=== PATIENT | male | born 1945 | race Caucasian/White ===

== ENCOUNTER 2016-08-08 12:14 | Emergency (ER) | payer OTHER ==
[2016-08-08] MEDS ORDERED: ONDANSETRON 4MG/2ML VIAL (J2405) As Ordered ONE (13:01)
[2016-08-08 13:38] LABS: BASO % 0.3 % (0.0-1.0); EOS % 0.4 % (0.0-3.0); LARGE UNSTAINED CELL # 0.1 K/mm3 (0.0-0.4); LARGE UNSTAINED CELL % 0.9 % (0.0-4.0); LYMPH # 0.5 K/mm3 (1.5-4.5); LYMPH % 5.1 % (24.0-44.0); MEAN CORPUSCULAR HEMOGLOBIN 30.8 pg (27.0-33.0); MEAN CORPUSCULAR HGB CONC 34.5 g/dl (32.0-36.5); MEAN CORPUSCULAR VOLUME 89.1 fl (80.0-96.0); MONO # 0.5 K/mm3 (0.0-0.8); MONO % 4.9 % (0.0-5.0); NEUTROPHILS # 8.7 K/mm3 (1.8-7.7); NEUTROPHILS % 88.3 % (36.0-66.0); PLATELET COUNT, AUTOMATED 127 k/mm3 (150-450); WHITE BLOOD COUNT 9.8 K/mm3 (4.0-10.0)
[2016-08-08 13:45] LABS: ALBUMIN/GLOBULIN RATIO 1.11 (1.00-1.93); ALKALINE PHOSPHATASE 125 U/L (45-117); ALT/SGPT 22 U/L (12-78); ANION GAP 9 MEQ/L (8-16); AST/SGOT 13 U/L (15-37); BILIRUBIN,DIRECT 0.2 MG/DL (0.0-0.2); BLOOD UREA NITROGEN 22 MG/DL (7-18); CALCIUM LEVEL 8.6 MG/DL (8.8-10.2); CARBON DIOXIDE LEVEL 33 MEQ/L (21-32); CHLORIDE LEVEL 96 MEQ/L (98-107); CREATININE FOR GFR 0.87 MG/DL (0.70-1.30); GLOMERULAR FILTRATION RATE > 60.0 (>42); GLUCOSE, FASTING 125 MG/DL (83-110); POTASSIUM SERUM 3.5 MEQ/L (3.5-5.1); SODIUM LEVEL 138 MEQ/L (136-145); TOTAL PROTEIN 7.6 GM/DL (6.4-8.2)
[2016-08-08] MEDS ORDERED: ACETAMINOPHEN 325 MG TAB As Ordered ONE (14:30)
[2016-08-08] MEDS ORDERED: UNASYN 3 GM VIAL As Ordered ONE (14:52)
--- NOTE | 2016-08-08 16:06 | EDDOCDS ---
Nurse's Notes [facility] Name: Link Ramirez Age: 71 yrs Sex: Male : 1945 Arrival Date: 08/08/2016 Time: 12:14 Bed I Private MD: Marvel Loredo P. Diagnosis: Nausea and vomiting-viral syndrome;Dental caries Presentation: 08/08 12:26 Presenting complaint: Patient states: my stomach is all upset started the other day and [facility] I have a bad tooth in there too, and I just Oh God, all I wanna do is lay down I can't drink anything 'cause if I do it comes back up. Adult Sepsis Screening: The patient does not have new or worsening altered mentation. Patient's respiratory rate is less than 22. Systolic blood pressure is greater than 100. Patient has a qSOFA score of 0- Negative Sepsis Screen. Suicide/Homicide risk assessment- The patient reports that he/she. Status: Patient is not a it service delivery manager or dependent. Transition of care: patient was not received from another setting of care. 12:26 Acuity: GLORIA Level 3 [facility] 12:26 Method Of Arrival: Walkin/Carried/Asstd [facility] Triage Assessment: 12:31 General: Appears ill, Behavior is anxious. Pain: Location: head Pain currently is 6 out [facility] of 10 on a pain scale. Neurological: Level of Consciousness is awake, alert, Oriented to person, place, time. EENT: Reports pain in mouth. Respiratory: Airway is patent Respiratory effort is even, unlabored. Derm: Skin is pink, warm & dry. Historical: - Allergies: no known allergies; - Home Meds: 1. Paxil 40 mg Oral tab 1 tab once daily (Last dose: 08/06/2016) 2. Pain, unknown nightly 3. Flonase 50 mcg/actuation Nasal spsn 1 spray once daily - PMHx: Depression; - PSHx: Appendectomy; Tonsillectomy; - Social history: Smoking status: Patient states was never smoker of tobacco. No barriers to communication noted. - Family history: Not pertinent. - : The pt / caregiver states he / she is not on anticoagulants. Home medication list is obtained from the patient, Unable to Verify Home Med List with the patient / caregiver. - Exposure Risk Screening:: None identified. Screenin:11 Screening information is obtained from the patient. Primary language is Slovak. Fall jam1 risk: No risks identified. Assistance ADL's: requires no assistance with activities of daily living. Nutritional screening: No deficits noted. Exposure Risk Screening: None identified. Advance Directives: Currently, there is a health care proxy, daughter of pt emi field. There is no active DNR order. There is no living will. There is no Power of Hybrid Corn Breeder. Advance directive information does not know if advance directives have been placed in a prior [facility] medical record. Further advance directive information is declined. home support is adequate. 16:04 Abuse/DV Screen: The patient / caregiver reports he/she is: not in a situation that dsf causes fear, pain or injury. Assessment: 13:14 Adult Sepsis Screening: The patient does not have new or worsening altered mentation. dsf Patient's respiratory rate is less than 22. Systolic blood pressure is greater than 100. Patient has a qSOFA score of 0- Negative Sepsis Screen. General: Appears in no apparent distress, Behavior is appropriate for age, cooperative. Pain: Location: right jaw Pain currently is 3 out of 10 on a pain scale. Quality of pain is described as throbbing. Neurological: Level of Consciousness is awake, alert. Cardiovascular: No deficits noted. Respiratory: No deficits noted. GI: other dry heaves Reports nausea. Derm: Skin is pink, warm & dry. 14:05 General: Appears in no apparent distress, Behavior is appropriate for age. Pain: dsf Location: right jaw Pain currently is 3 out of 10 on a pain scale. Neurological: Level of Consciousness is awake, alert. Cardiovascular: Capillary refill < 3 seconds. Respiratory: Airway is patent Respiratory effort is even, unlabored, Respiratory pattern is regular, symmetrical. GI: Reports nausea has improved. Derm: Skin is pink, warm & dry. 15:03 General: Appears in no apparent distress, comfortable, Behavior is appropriate for age, dsf cooperative. Pain: Location: right jaw Pain currently is 3 out of 10 on a pain scale. Neurological: Level of Consciousness is awake, alert. Cardiovascular: No deficits noted. Respiratory: No deficits noted. Derm: Skin is pink, warm & dry. 15:26 General: pt drank paramjit miguel a without difficulty. pt denies nausea or vomiting . dsf 16:04 Adult Sepsis Screening: The patient does not have new or worsening altered mentation. dsf Patient's respiratory rate is less than 22. Systolic blood pressure is greater than 100. Patient has a qSOFA score of 0- Negative Sepsis Screen. General: Appears in no apparent distress, comfortable, Behavior is appropriate for age, cooperative. Pain: Location: right jaw Pain currently is 1 out of 10 on a pain scale. Neurological: Level of Consciousness is awake, alert. Cardiovascular: Capillary refill < 3 seconds. Respiratory: Airway is patent Respiratory effort is even, unlabored, Respiratory pattern is regular, symmetrical. GI: Denies nausea. Derm: Skin is pink, warm & dry. Vital Signs: 12:17 BP 148 / 78; Pulse 114; Resp 18; Temp 101.3(O); Pulse Ox 92% on R/A; Weight 92.53 kg gr2 (R); Height 5 ft. 5 in. (165.10 cm) (R); Pain 8/10; 14:09 BP 113 / 83; Pulse 113; Resp 20; Temp 100.2(O); Pulse Ox 92% ; Pain 5/10; jam1 15:33 BP 110 / 54; Pulse 112; Resp 20; Temp 100.0; Pulse Ox 96% ; Pain 2/10; jam1 12:17 Body Mass Index 33.95 (92.53 kg, 165.10 cm) gr2 Vitals: 12:17 Log In Time: August 08, 2016 at 12:17. gr2 13:16 Strep Screen is obtained and tested: Negative, a GATSNEG culture is ordered in [facility] and sent. ED Course: 12:16 Patient visited by Willie Pineda. gr2 12:16 Marvel Loredo is Private Physician. gr2 12:16 Patient moved to Waiting gr2 12:18 Patient visited by Willie Pineda. gr2 12:18 Patient moved to Pre RCE gr2 12:27 Triage Initiated cjh 12:33 Patient moved to Triage 1 kr3 12:43 Wilbur Chacon PA-C is PHCP. ar2 12:43 Samuel Vu MD is Attending Physician. ar2 12:43 Patient visited by Wilbur Chacon PA-C. ar2 13:03 Patient moved to I7 / kr3 13:04 [facility] Payment Agreement was scanned into [employer] and attached to record. lg 13:15 Inserted saline lock: 18 gauge in left antecubital area The patient tolerated the dsf procedure well. 13:16 Lipase Sent. dsf 13:16 -Influenza A&B Rapid Antigen - Nose Sent. dsf 13:16 Liver Profile Sent. dsf 13:16 MED Profile Sent. dsf 13:16 CBC with Diff Sent. dsf 13:17 Patient visited by Lor Johnson RN. dsf 13:23 GATS (NEGATIVE STREP SCREEN) Sent. dsf 14:05 Patient visited by Lor Johnson RN. dsf 14:34 Patient moved to Radiology dsf 14:35 Patient moved to dsf 15:03 Patient visited by Lor Johnson RN. dsf 15:55 Marvel Loredo is Referral Physician. ar2 16:04 The patient / caregiver is instructed regarding the plan of care and ED course. dsf 16:04 Discontinued lock intact, bleeding controlled, pressure dressing applied, No dsf redness/swelling at site. No procedures done that require assistance. Administered Medications: 13:16 Drug: NS 0.9% 1000 ml [sodium chloride 0.9 % injection solution] Route: IV; Rate: dsf bolus; Site: left antecubital; 14:06 Follow up: IV Status: Completed infusion; IV Intake: 1000ml dsf 13:16 Drug: Ondansetron 4 mg [ondansetron HCl 2 mg/mL intravenous solution (2 mL)] Route: dsf IVP; Site: left antecubital; 14:32 Drug: Acetaminophen 650 mg [acetaminophen 325 mg tablet (2 tabs)] Route: PO; dsf 14:42 Not Given (Duplicate Order): Ampicillin-Sulbactam Sodium 2 grams IVPB once over 30 ar2 mins; dilute in 50mL of NS or D5W 14:57 Drug: Ampicillin-Sulbactam Sodium 3 grams [ampicillin-sulbactam 1.5 gram solution for dsf injection] Route: IVPB; Infused Over: 30 mins; Site: left antecubital; 15:26 Follow up: IV Status: Completed infusion; IV Intake: 100ml dsf Intake: 14:06 IV: 1000.00ml; Total: 1000.00ml. dsf 15:26 IV: 100.00ml; Total: 1100.00ml. dsf 15:27 PO: 120.00ml (Soft Drink); Total: 1220.00ml. dsf Order Results: Lab Order: CBC with Diff; SPEC'M 08/08/16 13:05 Test: WHITE BLOOD COUNT; Value: 9.8; Range: 4.0-10.0; Units: K/mm3; Status: F Test: RED BLOOD COUNT; Value: 5.21; Range: 4.30-6.10; Units: M/mm3; Status: F Test: HEMOGLOBIN; Value: 16.0; Range: 14.0-18.0; Units: g/dl; Status: F Test: HEMATOCRIT; Value: 46.4; Range: 42.0-52.0; Units: %; Status: F Test: MEAN CORPUSCULAR VOLUME; Value: 89.1; Range: 80.0-96.0; Units: fl; Status: F Test: MEAN CORPUSCULAR HEMOGLOBIN; Value: 30.8; Range: 27.0-33.0; Units: pg; Status: F Test: MEAN CORPUSCULAR HGB CONC; Value: 34.5; Range: 32.0-36.5; Units: g/dl; Status: F Test: RED CELL DISTRIBUTION WIDTH; Value: 13.0; Range: 11.5-14.5; Units: %; Status: F Test: PLATELET COUNT, AUTOMATED; Value: 127; Range: 150-450; Abnormal: Below low normal; Units: k/mm3; Status: F Test: NEUTROPHILS %; Value: 88.3; Range: 36.0-66.0; Abnormal: Above high normal; Units: %; Status: F Test: LYMPH %; Value: 5.1; Range: 24.0-44.0; Abnormal: Below low normal; Units: %; Status: F Test: MONO %; Value: 4.9; Range: 0.0-5.0; Units: %; Status: F Test: EOS %; Value: 0.4; Range: 0.0-3.0; Units: %; Status: F Test: BASO %; Value: 0.3; Range: 0.0-1.0; Units: %; Status: F Test: LARGE UNSTAINED CELL %; Value: 0.9; Range: 0.0-4.0; Units: %; Status: F Test: NEUTROPHILS #; Value: 8.7; Range: 1.8-7.7; Abnormal: Above high normal; Units: K/mm3; Status: F Test: LYMPH #; Value: 0.5; Range: 1.5-4.5; Abnormal: Below low normal; Units: K/mm3; Status: F Test: MONO #; Value: 0.5; Range: 0.0-0.8; Units: K/mm3; Status: F Test: EOS #; Value: 0.0; Range: 0.0-0.50; Units: K/mm3; Status: F Test: BASO #; Value: 0.0; Range: 0.0-0.2; Units: K/mm3; Status: F Test: LARGE UNSTAINED CELL #; Value: 0.1; Range: 0.0-0.4; Units: K/mm3; Status: F Lab Order: MED Profile; [facility] 08/08/16 13:05 Test: GLUCOSE, FASTING; Value: 125; Range: 83-110; Abnormal: Above high normal; Units: MG/DL; Status: F Test: BLOOD UREA NITROGEN; Value: 22; Range: 7-18; Abnormal: Above high normal; Units: MG/DL; Status: F Test: CREATININE FOR GFR; Value: 0.87; Range: 0.70-1.30; Units: MG/DL; Status: F Test: GLOMERULAR FILTRATION RATE; Value: > 60.0; Range: >42; Status: F Test: SODIUM LEVEL; Value: 138; Range: 136-145; Units: MEQ/L; Status: F Test: POTASSIUM SERUM; Value: 3.5; Range: 3.5-5.1; Units: MEQ/L; Status: F Test: CHLORIDE LEVEL; Value: 96; Range: 98-107; Abnormal: Below low normal; Units: MEQ/L; Status: F Test: CARBON DIOXIDE LEVEL; Value: 33; Range: 21-32; Abnormal: Above high normal; Units: MEQ/L; Status: F Test: ANION GAP; Value: 9; Range: 8-16; Units: MEQ/L; Status: F Test: CALCIUM LEVEL; Value: 8.6; Range: 8.8-10.2; Abnormal: Below low normal; Units: MG/DL; Status: F Test Note: ; Units are mL/min/1.73 m2 Chronic Kidney Disease Staging per NKF: Stage I & II GFR >=60 Normal to Mildly Decreased Stage III GFR 30-59 Moderately Decreased Stage IV GFR 15-29 Severely Decreased Stage V GFR <15 Very Little GFR Left ESRD GFR <15 on MACHINE TOOL TECHNOLOGY INSTRUCTOR Lab Order: Liver Profile; SPEC'M 08/08/16 13:05 Test: AST/SGOT; Value: 13; Range: 15-37; Abnormal: Below low normal; Units: U/L; Status: F Test: ALT/SGPT; Value: 22; Range: 12-78; Units: U/L; Status: F Test: ALKALINE PHOSPHATASE; Value: 125; Range: 45-117; Abnormal: Above high normal; Units: U/L; Status: F Test: BILIRUBIN,TOTAL; Value: 1.0; Range: 0.2-1.0; Units: MG/DL; Status: F Test: BILIRUBIN,DIRECT; Value: 0.2; Range: 0.0-0.2; Units: MG/DL; Status: F Test: TOTAL PROTEIN; Value: 7.6; Range: 6.4-8.2; Units: GM/DL; Status: F Test: ALBUMIN; Value: 4.0; Range: 3.2-5.2; Units: GM/DL; Status: F Test: ALBUMIN/GLOBULIN RATIO; Value: 1.11; Range: 1.00-1.93; Status: F Lab Order: -Influenza A&B Rapid Antigen - Nose; SPEC'M 08/08/16 13:05 Test: INFLUENZA A RAPID SCR by ICA; Value: INFLUENZA A RESULTS NEGATIVE; Status: F Test: INFLUENZA A RAPID SCR by ICA; Value: Comments:; Status: F Test: INFLUENZA B RAPID SCR by ICA; Value: INFLUENZA B RESULTS NEGATIVE; Status: F Test Note: ; The Influenza test is a direct rapid immunoassay for the qualitative detection of Influenza viral antigen. Cell culture (Viral Culture) testing should be considered to confirm NEGATIVE results and to assist in detecting other viruses that can provide similar clinical symptoms. Please contact the lab within 24 hours ([phone]) if confirmatory testing is desired. Lab Order: Lipase; SPEC'M 08/08/16 13:05 Test: LIPASE; Value: 64; Range: 73-393; Abnormal: Below low normal; Units: U/L; Status: F Outcome: 15:56 Discharge ordered by Provider. ar2 16:05 Discharge Assessment: Patient awake, alert and oriented x 3. No cognitive and/or dsf functional deficits noted. Patient verbalized understanding of disposition instructions. patient administered narcotics - no. The following High Risk Discharge criteria are identified: None. Discharged to home ambulatory. Condition: stable. Discharge instructions given to patient, Instructed on discharge instructions, follow up and referral plans. medication usage, Demonstrated understanding of instructions, medications, Pt was receptive of discharge instructions/ teaching. Prescriptions given X 2. No special radiology studies were completed. Property sent home with patient. 16:05 Patient left the ED. dsf Signatures: Rafaela Rao, MACHINIST 2ND SHIFT MACHINIST 2ND SHIFT jam1 Bree Mayorga, Reg Reg lg Yamilex Rodríguez,RN RN kr3 Wilbur Chacon, PAFang PAFang ar2 Lor JohnsonRN RN dsf Rafaela Buenrostro,RN RN [facility] Willie Pineda gr2 Corrections: (The following items were deleted from the chart) 16:05 16:04 Abuse/DV Screen: The patient / caregiver reports he/she is: dsf dsf MTDD
--- NOTE | 2016-08-08 16:06 | EDDOCDS ---
Physician Documentation [facility] Name: Link Ramirez Age: 71 yrs Sex: Male : 1945 Arrival Date: 08/08/2016 Time: 12:14 Bed I7 Private MD: Marvel Loredo P. Disposition: 08/08/16 15:56 Discharged to Home/Self Care. Impression: Nausea and vomiting - viral syndrome, Dental caries. - Condition is Stable. - Discharge Instructions: Dehydration, Adult, Dental Abscess, Dental Pain, Nausea and Vomiting, Viral Infections. - Prescriptions for Augmentin 875- 125 mg Oral Tablet - take 1 tablet by ORAL route every 12 hours for 10 days; 20 tablet. ZOFRAN ODT 4 mg Oral - dissolve 1 tablet by ORAL route every 8 hours As needed do not chew, do not swallow whole; 10 tablet. - Medication Reconciliation, Local Pharmacy Hours form. - Follow up: Marvel Loredo; When: As previously arranged; Reason: Recheck today's complaints, Continuance of care. Follow up: Emergency Department; When: As needed; Reason: Fever > 102F, Trouble breathing, Worsening of conditions. - Problem is new. - Symptoms have improved. Historical: - Allergies: no known allergies; - Home Meds: 1. Paxil 40 mg Oral tab 1 tab once daily (Last dose: 08/06/2016) 2. Pain, unknown nightly 3. Flonase 50 mcg/actuation Nasal spsn 1 spray once daily - PMHx: Depression; - PSHx: Appendectomy; Tonsillectomy; - Social history: Smoking status: Patient states was never smoker of tobacco. No barriers to communication noted. - Family history: Not pertinent. - : The pt / caregiver states he / she is not on anticoagulants. Home medication list is obtained from the patient, Unable to Verify Home Med List with the patient / caregiver. - Exposure Risk Screening:: None identified. Vital Signs: 08/08 12:17 BP 148 / 78; Pulse 114; Resp 18; Temp 101.3(O); Pulse Ox 92% on R/A; Weight 92.53 kg / gr2 203.99 lbs (R); Height 5 ft. 5 in. (165.10 cm) (R); Pain 8/10; 14:09 BP 113 / 83; Pulse 113; Resp 20; Temp 100.2(O); Pulse Ox 92% ; Pain 5/10; jam1 15:33 BP 110 / 54; Pulse 112; Resp 20; Temp 100.0; Pulse Ox 96% ; Pain 2/10; jam1 12:17 Body Mass Index 33.95 (92.53 kg, 165.10 cm) gr2 MDM: 12:52 Financial registration complete. lg 12:57 IV Saline Lock ordered. ar2 12:57 NS 0.9% 1000 ml IV at bolus once ordered. ar2 12:57 Ondansetron 4 mg IVP once ordered. ar2 12:57 Strep Screen, Nursing ordered. ar2 12:58 CBC with Diff Ordered. EDMS 12:58 MED Profile Ordered. EDMS 12:58 Liver Profile Ordered. EDMS 12:58 -Influenza A&B Rapid Antigen - Nose Ordered. EDMS 12:58 Lipase Ordered. EDMS 13:04 [facility] Payment Agreement was scanned into [employer] and attached to record. lg 13:17 GATS (NEGATIVE STREP SCREEN) Ordered. EDMS 14:23 CBC with Diff Reviewed. ar2 14:23 MED Profile Reviewed. ar2 14:23 Liver Profile Reviewed. ar2 14:23 Lipase Reviewed. ar2 14:23 -Influenza A&B Rapid Antigen - Nose Reviewed. ar2 14:24 Acetaminophen Tablet 650 mg PO once ordered. ar2 14:24 Fluid Challenge ordered. ar2 14:24 Ampicillin-Sulbactam Sodium 2 grams IVPB once over 30 mins; dilute in 50mL of NS or D5W ar2 ordered. 14:26 Chest, 2 View (pa\E\lat) Ordered. EDMS 14:42 Ampicillin-Sulbactam Sodium 2 grams IVPB once over 30 mins; dilute in 50mL of NS or D5W ar2 ordered. 14:42 Ampicillin-Sulbactam Sodium 3 grams IVPB once over 30 mins; dilute in 100mL of NS or ar2 D5W ordered. Administered Medications: 13:16 Drug: NS 0.9% 1000 ml [sodium chloride 0.9 % injection solution] Route: IV; Rate: dsf bolus; Site: left antecubital; 14:06 Follow up: IV Status: Completed infusion; IV Intake: 1000ml dsf 13:16 Drug: Ondansetron 4 mg [ondansetron HCl 2 mg/mL intravenous solution (2 mL)] Route: dsf IVP; Site: left antecubital; 14:32 Drug: Acetaminophen 650 mg [acetaminophen 325 mg tablet (2 tabs)] Route: PO; dsf 14:42 Not Given (Duplicate Order): Ampicillin-Sulbactam Sodium 2 grams IVPB once over 30 ar2 mins; dilute in 50mL of NS or D5W 14:57 Drug: Ampicillin-Sulbactam Sodium 3 grams [ampicillin-sulbactam 1.5 gram solution for dsf injection] Route: IVPB; Infused Over: 30 mins; Site: left antecubital; 15:26 Follow up: IV Status: Completed infusion; IV Intake: 100ml dsf Signatures: Dispatcher [employer] EDBree Stallings, Maicol Reg lg Wilbur Chacon PA-C PA-C ar2 Lor Johnson RN RN dsf Rafaela Buenrostro RN RN [facility] The chart was reviewed and I authenticate all verbal orders and agree with the evaluation and treatment provided.Attachments: 13:04 [facility] Payment Agreement lg MTDD
--- NOTE | 2016-08-09 19:57 | REP ---
PA and lateral chest radiograph 08/08/2016 Indication: Fever Comparison: Portable chest 07/07/2014, PA and lateral chest 08/22/2010 Cardiac silhouette is of normal size. The lungs are clear bilaterally. There are moderate to advanced degenerative changes in thoracic spine. Impression: No acute cardiopulmonary process or interval change. Signed by Marianna Torres MD 08/09/2016 07:48 P
--- NOTE | 2016-08-10 17:06 | EDDOCDS ---
Nurse's Notes [facility] Name: Link Ramirez Age: 71 yrs Sex: Male : 1945 Arrival Date: 08/08/2016 Time: 12:14 Bed I Private MD: Marvel Loredo P. Diagnosis: Nausea and vomiting-viral syndrome;Dental caries Presentation: 08/08 12:26 Presenting complaint: Patient states: my stomach is all upset started the other day and [facility] I have a bad tooth in there too, and I just Oh God, all I wanna do is lay down I can't drink anything 'cause if I do it comes back up. Adult Sepsis Screening: The patient does not have new or worsening altered mentation. Patient's respiratory rate is less than 22. Systolic blood pressure is greater than 100. Patient has a qSOFA score of 0- Negative Sepsis Screen. Suicide/Homicide risk assessment- The patient reports that he/she. Status: Patient is not a field service coordinator or dependent. Transition of care: patient was not received from another setting of care. 12:26 Acuity: GLORIA Level 3 [facility] 12:26 Method Of Arrival: Walkin/Carried/Asstd [facility] Triage Assessment: 12:31 General: Appears ill, Behavior is anxious. Pain: Location: head Pain currently is 6 out [facility] of 10 on a pain scale. Neurological: Level of Consciousness is awake, alert, Oriented to person, place, time. EENT: Reports pain in mouth. Respiratory: Airway is patent Respiratory effort is even, unlabored. Derm: Skin is pink, warm & dry. Historical: - Allergies: no known allergies; - Home Meds: 1. Paxil 40 mg Oral tab 1 tab once daily (Last dose: 08/06/2016) 2. Pain, unknown nightly 3. Flonase 50 mcg/actuation Nasal spsn 1 spray once daily - PMHx: Depression; - PSHx: Appendectomy; Tonsillectomy; - Social history: Smoking status: Patient states was never smoker of tobacco. No barriers to communication noted. - Family history: Not pertinent. - : The pt / caregiver states he / she is not on anticoagulants. Home medication list is obtained from the patient, Unable to Verify Home Med List with the patient / caregiver. - Exposure Risk Screening:: None identified. Screenin:11 Screening information is obtained from the patient. Primary language is Irish. Fall jam1 risk: No risks identified. Assistance ADL's: requires no assistance with activities of daily living. Nutritional screening: No deficits noted. Exposure Risk Screening: None identified. Advance Directives: Currently, there is a health care proxy, daughter of pt emi field. There is no active DNR order. There is no living will. There is no Power of Cad Developer. Advance directive information does not know if advance directives have been placed in a prior [facility] medical record. Further advance directive information is declined. home support is adequate. 16:04 Abuse/DV Screen: The patient / caregiver reports he/she is: not in a situation that dsf causes fear, pain or injury. Assessment: 13:14 Adult Sepsis Screening: The patient does not have new or worsening altered mentation. dsf Patient's respiratory rate is less than 22. Systolic blood pressure is greater than 100. Patient has a qSOFA score of 0- Negative Sepsis Screen. General: Appears in no apparent distress, Behavior is appropriate for age, cooperative. Pain: Location: right jaw Pain currently is 3 out of 10 on a pain scale. Quality of pain is described as throbbing. Neurological: Level of Consciousness is awake, alert. Cardiovascular: No deficits noted. Respiratory: No deficits noted. GI: other dry heaves Reports nausea. Derm: Skin is pink, warm & dry. 14:05 General: Appears in no apparent distress, Behavior is appropriate for age. Pain: dsf Location: right jaw Pain currently is 3 out of 10 on a pain scale. Neurological: Level of Consciousness is awake, alert. Cardiovascular: Capillary refill < 3 seconds. Respiratory: Airway is patent Respiratory effort is even, unlabored, Respiratory pattern is regular, symmetrical. GI: Reports nausea has improved. Derm: Skin is pink, warm & dry. 15:03 General: Appears in no apparent distress, comfortable, Behavior is appropriate for age, dsf cooperative. Pain: Location: right jaw Pain currently is 3 out of 10 on a pain scale. Neurological: Level of Consciousness is awake, alert. Cardiovascular: No deficits noted. Respiratory: No deficits noted. Derm: Skin is pink, warm & dry. 15:26 General: pt drank paramjit miguel a without difficulty. pt denies nausea or vomiting . dsf 16:04 Adult Sepsis Screening: The patient does not have new or worsening altered mentation. dsf Patient's respiratory rate is less than 22. Systolic blood pressure is greater than 100. Patient has a qSOFA score of 0- Negative Sepsis Screen. General: Appears in no apparent distress, comfortable, Behavior is appropriate for age, cooperative. Pain: Location: right jaw Pain currently is 1 out of 10 on a pain scale. Neurological: Level of Consciousness is awake, alert. Cardiovascular: Capillary refill < 3 seconds. Respiratory: Airway is patent Respiratory effort is even, unlabored, Respiratory pattern is regular, symmetrical. GI: Denies nausea. Derm: Skin is pink, warm & dry. Vital Signs: 12:17 BP 148 / 78; Pulse 114; Resp 18; Temp 101.3(O); Pulse Ox 92% on R/A; Weight 92.53 kg gr2 (R); Height 5 ft. 5 in. (165.10 cm) (R); Pain 8/10; 14:09 BP 113 / 83; Pulse 113; Resp 20; Temp 100.2(O); Pulse Ox 92% ; Pain 5/10; jam1 15:33 BP 110 / 54; Pulse 112; Resp 20; Temp 100.0; Pulse Ox 96% ; Pain 2/10; jam1 12:17 Body Mass Index 33.95 (92.53 kg, 165.10 cm) gr2 Vitals: 12:17 Log In Time: August 08, 2016 at 12:17. gr2 13:16 Strep Screen is obtained and tested: Negative, a GATSNEG culture is ordered in [facility] and sent. ED Course: 12:16 Patient visited by Willie Pineda. gr2 12:16 Marvel Loredo is Private Physician. gr2 12:16 Patient moved to Waiting gr2 12:18 Patient visited by Willie Pineda. gr2 12:18 Patient moved to Pre RCE gr2 12:27 Triage Initiated cjh 12:33 Patient moved to Triage 1 kr3 12:43 Wilbur Chacon PA-C is PHCP. ar2 12:43 Samuel Vu MD is Attending Physician. ar2 12:43 Patient visited by Wilbur Chacon PA-C. ar2 13:03 Patient moved to I7 / kr3 13:04 [facility] Payment Agreement was scanned into [employer] and attached to record. lg 13:15 Inserted saline lock: 18 gauge in left antecubital area The patient tolerated the dsf procedure well. 13:16 Lipase Sent. dsf 13:16 -Influenza A&B Rapid Antigen - Nose Sent. dsf 13:16 Liver Profile Sent. dsf 13:16 MED Profile Sent. dsf 13:16 CBC with Diff Sent. dsf 13:17 Patient visited by Lor Johnson RN. dsf 13:23 GATS (NEGATIVE STREP SCREEN) Sent. dsf 14:05 Patient visited by Lor Johnson RN. dsf 14:34 Patient moved to Radiology dsf 14:35 Patient moved to I dsf 15:03 Patient visited by Lor Johnson RN. dsf 15:55 Marvel Loredo is Referral Physician. ar2 16:04 The patient / caregiver is instructed regarding the plan of care and ED course. dsf 16:04 Discontinued lock intact, bleeding controlled, pressure dressing applied, No dsf redness/swelling at site. No procedures done that require assistance. 08/09 18:05 T-Sheet-- Draft Copy was scanned into [employer] and attached to record. klr 20:14 Chest, 2 View (pa\E\lat) Returned. EDMS Administered Medications: 08/08 13:16 Drug: NS 0.9% 1000 ml [sodium chloride 0.9 % injection solution] Route: IV; Rate: dsf bolus; Site: left antecubital; 14:06 Follow up: IV Status: Completed infusion; IV Intake: 1000ml dsf 13:16 Drug: Ondansetron 4 mg [ondansetron HCl 2 mg/mL intravenous solution (2 mL)] Route: dsf IVP; Site: left antecubital; 14:32 Drug: Acetaminophen 650 mg [acetaminophen 325 mg tablet (2 tabs)] Route: PO; dsf 14:42 Not Given (Duplicate Order): Ampicillin-Sulbactam Sodium 2 grams IVPB once over 30 ar2 mins; dilute in 50mL of NS or D5W 14:57 Drug: Ampicillin-Sulbactam Sodium 3 grams [ampicillin-sulbactam 1.5 gram solution for dsf injection] Route: IVPB; Infused Over: 30 mins; Site: left antecubital; 15:26 Follow up: IV Status: Completed infusion; IV Intake: 100ml dsf Intake: 14:06 IV: 1000.00ml; Total: 1000.00ml. dsf 15:26 IV: 100.00ml; Total: 1100.00ml. dsf 15:27 PO: 120.00ml (Soft Drink); Total: 1220.00ml. dsf Order Results: Lab Order: CBC with Diff; SPEC'M 08/08/16 13:05 Test: WHITE BLOOD COUNT; Value: 9.8; Range: 4.0-10.0; Units: K/mm3; Status: F Test: RED BLOOD COUNT; Value: 5.21; Range: 4.30-6.10; Units: M/mm3; Status: F Test: HEMOGLOBIN; Value: 16.0; Range: 14.0-18.0; Units: g/dl; Status: F Test: HEMATOCRIT; Value: 46.4; Range: 42.0-52.0; Units: %; Status: F Test: MEAN CORPUSCULAR VOLUME; Value: 89.1; Range: 80.0-96.0; Units: fl; Status: F Test: MEAN CORPUSCULAR HEMOGLOBIN; Value: 30.8; Range: 27.0-33.0; Units: pg; Status: F Test: MEAN CORPUSCULAR HGB CONC; Value: 34.5; Range: 32.0-36.5; Units: g/dl; Status: F Test: RED CELL DISTRIBUTION WIDTH; Value: 13.0; Range: 11.5-14.5; Units: %; Status: F Test: PLATELET COUNT, AUTOMATED; Value: 127; Range: 150-450; Abnormal: Below low normal; Units: k/mm3; Status: F Test: NEUTROPHILS %; Value: 88.3; Range: 36.0-66.0; Abnormal: Above high normal; Units: %; Status: F Test: LYMPH %; Value: 5.1; Range: 24.0-44.0; Abnormal: Below low normal; Units: %; Status: F Test: MONO %; Value: 4.9; Range: 0.0-5.0; Units: %; Status: F Test: EOS %; Value: 0.4; Range: 0.0-3.0; Units: %; Status: F Test: BASO %; Value: 0.3; Range: 0.0-1.0; Units: %; Status: F Test: LARGE UNSTAINED CELL %; Value: 0.9; Range: 0.0-4.0; Units: %; Status: F Test: NEUTROPHILS #; Value: 8.7; Range: 1.8-7.7; Abnormal: Above high normal; Units: K/mm3; Status: F Test: LYMPH #; Value: 0.5; Range: 1.5-4.5; Abnormal: Below low normal; Units: K/mm3; Status: F Test: MONO #; Value: 0.5; Range: 0.0-0.8; Units: K/mm3; Status: F Test: EOS #; Value: 0.0; Range: 0.0-0.50; Units: K/mm3; Status: F Test: BASO #; Value: 0.0; Range: 0.0-0.2; Units: K/mm3; Status: F Test: LARGE UNSTAINED CELL #; Value: 0.1; Range: 0.0-0.4; Units: K/mm3; Status: F Lab Order: MED Profile; SPEC'M 08/08/16 13:05 Test: GLUCOSE, FASTING; Value: 125; Range: 83-110; Abnormal: Above high normal; Units: MG/DL; Status: F Test: BLOOD UREA NITROGEN; Value: 22; Range: 7-18; Abnormal: Above high normal; Units: MG/DL; Status: F Test: CREATININE FOR GFR; Value: 0.87; Range: 0.70-1.30; Units: MG/DL; Status: F Test: GLOMERULAR FILTRATION RATE; Value: > 60.0; Range: >42; Status: F Test: SODIUM LEVEL; Value: 138; Range: 136-145; Units: MEQ/L; Status: F Test: POTASSIUM SERUM; Value: 3.5; Range: 3.5-5.1; Units: MEQ/L; Status: F Test: CHLORIDE LEVEL; Value: 96; Range: 98-107; Abnormal: Below low normal; Units: MEQ/L; Status: F Test: CARBON DIOXIDE LEVEL; Value: 33; Range: 21-32; Abnormal: Above high normal; Units: MEQ/L; Status: F Test: ANION GAP; Value: 9; Range: 8-16; Units: MEQ/L; Status: F Test: CALCIUM LEVEL; Value: 8.6; Range: 8.8-10.2; Abnormal: Below low normal; Units: MG/DL; Status: F Test Note: ; Units are mL/min/1.73 m2 Chronic Kidney Disease Staging per NKF: Stage I & II GFR >=60 Normal to Mildly Decreased Stage III GFR 30-59 Moderately Decreased Stage IV GFR 15-29 Severely Decreased Stage V GFR <15 Very Little GFR Left ESRD GFR <15 on BARREL [employer]KER Lab Order: Liver Profile; SPEC'M 08/08/16 13:05 Test: AST/SGOT; Value: 13; Range: 15-37; Abnormal: Below low normal; Units: U/L; Status: F Test: ALT/SGPT; Value: 22; Range: 12-78; Units: U/L; Status: F Test: ALKALINE PHOSPHATASE; Value: 125; Range: 45-117; Abnormal: Above high normal; Units: U/L; Status: F Test: BILIRUBIN,TOTAL; Value: 1.0; Range: 0.2-1.0; Units: MG/DL; Status: F Test: BILIRUBIN,DIRECT; Value: 0.2; Range: 0.0-0.2; Units: MG/DL; Status: F Test: TOTAL PROTEIN; Value: 7.6; Range: 6.4-8.2; Units: GM/DL; Status: F Test: ALBUMIN; Value: 4.0; Range: 3.2-5.2; Units: GM/DL; Status: F Test: ALBUMIN/GLOBULIN RATIO; Value: 1.11; Range: 1.00-1.93; Status: F Lab Order: -Influenza A&B Rapid Antigen - Nose; SPEC'M 08/08/16 13:05 Test: INFLUENZA A RAPID SCR by ICA; Value: INFLUENZA A RESULTS NEGATIVE; Status: F Test: INFLUENZA A RAPID SCR by ICA; Value: Comments:; Status: F Test: INFLUENZA B RAPID SCR by ICA; Value: INFLUENZA B RESULTS NEGATIVE; Status: F Test Note: ; The Influenza test is a direct rapid immunoassay for the qualitative detection of Influenza viral antigen. Cell culture (Viral Culture) testing should be considered to confirm NEGATIVE results and to assist in detecting other viruses that can provide similar clinical symptoms. Please contact the lab within 24 hours ([phone]) if confirmatory testing is desired. Lab Order: Lipase; SPEC'M 08/08/16 13:05 Test: LIPASE; Value: 64; Range: 73-393; Abnormal: Below low normal; Units: U/L; Status: F Lab Order: GATS (NEGATIVE STREP SCREEN); SPEC'M 08/08/16 13:05 Test: GATS CULTURE (NEG STREP SCR); Value: GATS RESULT NEGATIVE FOR STREP PYOGENES (GROUP A); Status: F Radiology Order: Chest, 2 View (pa\E\lat) Test: Chest, 2 View (pa\E\lat) REASON FOR EXAMINATION: fever; PA and lateral chest radiograph 08/08/2016; ; Indication: Fever; ; Comparison: Portable chest 07/07/2014, PA and lateral chest 08/22/2010; ; Cardiac silhouette is of normal size. The lungs are clear bilaterally. There; are moderate to advanced degenerative changes in thoracic spine.; ; Impression:; ; No acute cardiopulmonary process or interval change.; ; ; Signed by; Marianna Torres MD 08/09/2016 07:48 P; Outcome: 15:56 Discharge ordered by Provider. ar2 16:05 Discharge Assessment: Patient awake, alert and oriented x 3. No cognitive and/or dsf functional deficits noted. Patient verbalized understanding of disposition instructions. patient administered narcotics - no. The following High Risk Discharge criteria are identified: None. Discharged to home ambulatory. Condition: stable. Discharge instructions given to patient, Instructed on discharge instructions, follow up and referral plans. medication usage, Demonstrated understanding of instructions, medications, Pt was receptive of discharge instructions/ teaching. Prescriptions given X 2. No special radiology studies were completed. Property sent home with patient. 16:05 Patient left the ED. dsf Signatures: Dispatcher [employer] EDMS Rafaela Rao, HOME INSPECTOR HOME INSPECTOR jam1 Bree Mayorga, Maicol Reg Yamilex Guillen,RN RN kr3 Wilbur Chacon, PA-C PA-C ar2 Lor JohnsonRN RN dsf Rafaela Buenrostro,ADRIANA RN [facility] Willie Pineda 2 Christal Valdivia Corrections: (The following items were deleted from the chart) 16:05 16:04 Abuse/DV Screen: The patient / caregiver reports he/she is: dsf dsf Chart Complete MTDD
--- NOTE | 2016-08-10 17:06 | EDDOCDS ---
Physician Documentation [facility] Name: Lnik Ramirez Age: 71 yrs Sex: Male : 1945 Arrival Date: 08/08/2016 Time: 12:14 Bed I7 Private MD: Marvel Loredo P. Disposition: 08/08/16 15:56 Discharged to Home/Self Care. Impression: Nausea and vomiting - viral syndrome, Dental caries. - Condition is Stable. - Discharge Instructions: Dehydration, Adult, Dental Abscess, Dental Pain, Nausea and Vomiting, Viral Infections. - Prescriptions for Augmentin 875- 125 mg Oral Tablet - take 1 tablet by ORAL route every 12 hours for 10 days; 20 tablet. ZOFRAN ODT 4 mg Oral - dissolve 1 tablet by ORAL route every 8 hours As needed do not chew, do not swallow whole; 10 tablet. - Medication Reconciliation, Local Pharmacy Hours form. - Follow up: Marvel Loredo; When: As previously arranged; Reason: Recheck today's complaints, Continuance of care. Follow up: Emergency Department; When: As needed; Reason: Fever > 102F, Trouble breathing, Worsening of conditions. - Problem is new. - Symptoms have improved. Historical: - Allergies: no known allergies; - Home Meds: 1. Paxil 40 mg Oral tab 1 tab once daily (Last dose: 08/06/2016) 2. Pain, unknown nightly 3. Flonase 50 mcg/actuation Nasal spsn 1 spray once daily - PMHx: Depression; - PSHx: Appendectomy; Tonsillectomy; - Social history: Smoking status: Patient states was never smoker of tobacco. No barriers to communication noted. - Family history: Not pertinent. - : The pt / caregiver states he / she is not on anticoagulants. Home medication list is obtained from the patient, Unable to Verify Home Med List with the patient / caregiver. - Exposure Risk Screening:: None identified. Vital Signs: 08/08 12:17 BP 148 / 78; Pulse 114; Resp 18; Temp 101.3(O); Pulse Ox 92% on R/A; Weight 92.53 kg / gr2 203.99 lbs (R); Height 5 ft. 5 in. (165.10 cm) (R); Pain 8/10; 14:09 BP 113 / 83; Pulse 113; Resp 20; Temp 100.2(O); Pulse Ox 92% ; Pain 5/10; jam1 15:33 BP 110 / 54; Pulse 112; Resp 20; Temp 100.0; Pulse Ox 96% ; Pain 2/10; jam1 12:17 Body Mass Index 33.95 (92.53 kg, 165.10 cm) gr2 MDM: 12:52 Financial registration complete. lg 12:57 IV Saline Lock ordered. ar2 12:57 NS 0.9% 1000 ml IV at bolus once ordered. ar2 12:57 Ondansetron 4 mg IVP once ordered. ar2 12:57 Strep Screen, Nursing ordered. ar2 12:58 CBC with Diff Ordered. EDMS 12:58 MED Profile Ordered. EDMS 12:58 Liver Profile Ordered. EDMS 12:58 -Influenza A&B Rapid Antigen - Nose Ordered. EDMS 12:58 Lipase Ordered. EDMS 13:04 [facility] Payment Agreement was scanned into [employer] and attached to record. lg 13:17 GATS (NEGATIVE STREP SCREEN) Ordered. EDMS 14:23 CBC with Diff Reviewed. ar2 14:23 MED Profile Reviewed. ar2 14:23 Liver Profile Reviewed. ar2 14:23 Lipase Reviewed. ar2 14:23 -Influenza A&B Rapid Antigen - Nose Reviewed. ar2 14:24 Acetaminophen Tablet 650 mg PO once ordered. ar2 14:24 Fluid Challenge ordered. ar2 14:24 Ampicillin-Sulbactam Sodium 2 grams IVPB once over 30 mins; dilute in 50mL of NS or D5W ar2 ordered. 14:26 Chest, 2 View (pa\E\lat) Ordered. EDMS 14:42 Ampicillin-Sulbactam Sodium 2 grams IVPB once over 30 mins; dilute in 50mL of NS or D5W ar2 ordered. 14:42 Ampicillin-Sulbactam Sodium 3 grams IVPB once over 30 mins; dilute in 100mL of NS or ar2 D5W ordered. 08/09 18:05 T-Sheet-- Draft Copy was scanned into [employer] and attached to record. klr Administered Medications: 08/08 13:16 Drug: NS 0.9% 1000 ml [sodium chloride 0.9 % injection solution] Route: IV; Rate: dsf bolus; Site: left antecubital; 14:06 Follow up: IV Status: Completed infusion; IV Intake: 1000ml dsf 13:16 Drug: Ondansetron 4 mg [ondansetron HCl 2 mg/mL intravenous solution (2 mL)] Route: dsf IVP; Site: left antecubital; 14:32 Drug: Acetaminophen 650 mg [acetaminophen 325 mg tablet (2 tabs)] Route: PO; dsf 14:42 Not Given (Duplicate Order): Ampicillin-Sulbactam Sodium 2 grams IVPB once over 30 ar2 mins; dilute in 50mL of NS or D5W 14:57 Drug: Ampicillin-Sulbactam Sodium 3 grams [ampicillin-sulbactam 1.5 gram solution for dsf injection] Route: IVPB; Infused Over: 30 mins; Site: left antecubital; 15:26 Follow up: IV Status: Completed infusion; IV Intake: 100ml dsf Signatures: Dispatcher [employer] EDBree Stallings, Maicol Reg lg Wilbur Chacon PA-C PA-C ar2 Lor Johnson RN RN dsf Rafaela Buenrostro RN RN [facility] Christal Valdivia The chart was reviewed and I authenticate all verbal orders and agree with the evaluation and treatment provided.Attachments: 13:04 [facility] Payment Agreement lg 08/09 18:05 T-Sheet-- Draft Copy [email or web address] Chart [facility]
--- NOTE | 2016-08-10 17:06 | EDDOCDS ---
Physician Documentation [facility] Name: Link Ramirez Age: 71 yrs Sex: Male : 1945 Arrival Date: 08/08/2016 Time: 12:14 Bed I7 Private MD: Marvel Loredo P. Disposition: 08/08/16 15:56 Discharged to Home/Self Care. Impression: Nausea and vomiting - viral syndrome, Dental caries. - Condition is Stable. - Discharge Instructions: Dehydration, Adult, Dental Abscess, Dental Pain, Nausea and Vomiting, Viral Infections. - Prescriptions for Augmentin 875- 125 mg Oral Tablet - take 1 tablet by ORAL route every 12 hours for 10 days; 20 tablet. ZOFRAN ODT 4 mg Oral - dissolve 1 tablet by ORAL route every 8 hours As needed do not chew, do not swallow whole; 10 tablet. - Medication Reconciliation, Local Pharmacy Hours form. - Follow up: Marvel Loredo; When: As previously arranged; Reason: Recheck today's complaints, Continuance of care. Follow up: Emergency Department; When: As needed; Reason: Fever > 102F, Trouble breathing, Worsening of conditions. - Problem is new. - Symptoms have improved. Historical: - Allergies: no known allergies; - Home Meds: 1. Paxil 40 mg Oral tab 1 tab once daily (Last dose: 08/06/2016) 2. Pain, unknown nightly 3. Flonase 50 mcg/actuation Nasal spsn 1 spray once daily - PMHx: Depression; - PSHx: Appendectomy; Tonsillectomy; - Social history: Smoking status: Patient states was never smoker of tobacco. No barriers to communication noted. - Family history: Not pertinent. - : The pt / caregiver states he / she is not on anticoagulants. Home medication list is obtained from the patient, Unable to Verify Home Med List with the patient / caregiver. - Exposure Risk Screening:: None identified. Vital Signs: 08/08 12:17 BP 148 / 78; Pulse 114; Resp 18; Temp 101.3(O); Pulse Ox 92% on R/A; Weight 92.53 kg / gr2 203.99 lbs (R); Height 5 ft. 5 in. (165.10 cm) (R); Pain 8/10; 14:09 BP 113 / 83; Pulse 113; Resp 20; Temp 100.2(O); Pulse Ox 92% ; Pain 5/10; jam1 15:33 BP 110 / 54; Pulse 112; Resp 20; Temp 100.0; Pulse Ox 96% ; Pain 2/10; jam1 12:17 Body Mass Index 33.95 (92.53 kg, 165.10 cm) gr2 MDM: 12:52 Financial registration complete. lg 12:57 IV Saline Lock ordered. ar2 12:57 NS 0.9% 1000 ml IV at bolus once ordered. ar2 12:57 Ondansetron 4 mg IVP once ordered. ar2 12:57 Strep Screen, Nursing ordered. ar2 12:58 CBC with Diff Ordered. EDMS 12:58 MED Profile Ordered. EDMS 12:58 Liver Profile Ordered. EDMS 12:58 -Influenza A&B Rapid Antigen - Nose Ordered. EDMS 12:58 Lipase Ordered. EDMS 13:04 [facility] Payment Agreement was scanned into [employer] and attached to record. lg 13:17 GATS (NEGATIVE STREP SCREEN) Ordered. EDMS 14:23 CBC with Diff Reviewed. ar2 14:23 MED Profile Reviewed. ar2 14:23 Liver Profile Reviewed. ar2 14:23 Lipase Reviewed. ar2 14:23 -Influenza A&B Rapid Antigen - Nose Reviewed. ar2 14:24 Acetaminophen Tablet 650 mg PO once ordered. ar2 14:24 Fluid Challenge ordered. ar2 14:24 Ampicillin-Sulbactam Sodium 2 grams IVPB once over 30 mins; dilute in 50mL of NS or D5W ar2 ordered. 14:26 Chest, 2 View (pa\E\lat) Ordered. EDMS 14:42 Ampicillin-Sulbactam Sodium 2 grams IVPB once over 30 mins; dilute in 50mL of NS or D5W ar2 ordered. 14:42 Ampicillin-Sulbactam Sodium 3 grams IVPB once over 30 mins; dilute in 100mL of NS or ar2 D5W ordered. 08/09 18:05 T-Sheet-- Draft Copy was scanned into [employer] and attached to record. klr Administered Medications: 08/08 13:16 Drug: NS 0.9% 1000 ml [sodium chloride 0.9 % injection solution] Route: IV; Rate: dsf bolus; Site: left antecubital; 14:06 Follow up: IV Status: Completed infusion; IV Intake: 1000ml dsf 13:16 Drug: Ondansetron 4 mg [ondansetron HCl 2 mg/mL intravenous solution (2 mL)] Route: dsf IVP; Site: left antecubital; 14:32 Drug: Acetaminophen 650 mg [acetaminophen 325 mg tablet (2 tabs)] Route: PO; dsf 14:42 Not Given (Duplicate Order): Ampicillin-Sulbactam Sodium 2 grams IVPB once over 30 ar2 mins; dilute in 50mL of NS or D5W 14:57 Drug: Ampicillin-Sulbactam Sodium 3 grams [ampicillin-sulbactam 1.5 gram solution for dsf injection] Route: IVPB; Infused Over: 30 mins; Site: left antecubital; 15:26 Follow up: IV Status: Completed infusion; IV Intake: 100ml dsf Signatures: Dispatcher [employer] EDBree Stallings, aMicol Reg lg Wilbur Chacon PA-C PA-C ar2 Lor Johnson RN RN dsf Rafaela Buenrostro RN RN [facility] Christal Valdivia The chart was reviewed and I authenticate all verbal orders and agree with the evaluation and treatment provided.Attachments: 13:04 [facility] Payment Agreement lg 08/09 18:05 T-Sheet-- Draft Copy [email or web address] Chart [facility]
== END 2016-08-08 16:05 | disposition home or self-care (01) ==
LOC: M ED 12:14
DX: R11.2 Nausea with vomiting, unspecified (principal); B34.9 Viral infection, unspecified; K02.9 Dental caries, unspecified; E86.0 Dehydration
CPT/HCPCS: 71020; 80048; 80076; 83690; 85025; 87804; 87880; 96361; 96365; 96375; 99284; J2405

== ENCOUNTER → 2016-08-10 | Outpatient (REF) | payer OTHER ==
[2016-08-10 14:36] LABS: ALBUMIN 3.2 GM/DL (3.2-5.2); ALBUMIN/GLOBULIN RATIO 0.94 (1.00-1.93); ALKALINE PHOSPHATASE 103 U/L (45-117); ALT/SGPT 30 U/L (12-78); ANION GAP 7 MEQ/L (8-16); AST/SGOT 22 U/L (15-37); BILIRUBIN,TOTAL 0.7 MG/DL (0.2-1.0); BLOOD UREA NITROGEN 20 MG/DL (7-18); CALCIUM LEVEL 8.5 MG/DL (8.8-10.2); CARBON DIOXIDE LEVEL 35 MEQ/L (21-32); CHLORIDE LEVEL 100 MEQ/L (98-107); CHOLESTEROL LEVEL 170 MG/DL (<200); CREATININE FOR GFR 0.81 MG/DL (0.70-1.30); GLOMERULAR FILTRATION RATE > 60.0 (>42); GLUCOSE, FASTING 103 MG/DL (83-110); POTASSIUM SERUM 3.9 MEQ/L (3.5-5.1); SODIUM LEVEL 142 MEQ/L (136-145); TOTAL PROTEIN 6.6 GM/DL (6.4-8.2); TRIGLYCERIDES LEVEL 150 MG/DL (<150)
== END ==
LOC: M LABDRAW1 12:56
PROVIDERS: ATTEND Emergency Medicine
DX: E78.2 Mixed hyperlipidemia (principal); E55.9 Vitamin D deficiency, unspecified

== ENCOUNTER → 2017-02-22 | Outpatient (REF) | payer OTHER ==
[2017-02-22 12:47] LABS: BASO # 0.1 K/mm3 (0.0-0.2); BASO % 1.3 % (0.0-1.0); EOS # 0.2 K/mm3 (0.0-0.50); LARGE UNSTAINED CELL # 0.1 K/mm3 (0.0-0.4); LARGE UNSTAINED CELL % 2.1 % (0.0-4.0); LYMPH # 1.7 K/mm3 (1.5-4.5); LYMPH % 34.9 % (24.0-44.0); MEAN CORPUSCULAR HEMOGLOBIN 30.3 pg (27.0-33.0); MEAN CORPUSCULAR HGB CONC 33.5 g/dl (32.0-36.5); MEAN CORPUSCULAR VOLUME 90.5 fl (80.0-96.0); MONO # 0.3 K/mm3 (0.0-0.8); MONO % 6.4 % (0.0-5.0); NEUTROPHILS # 2.5 K/mm3 (1.8-7.7); NEUTROPHILS % 51.3 % (36.0-66.0); PLATELET COUNT, AUTOMATED 160 k/mm3 (150-450); RED CELL DISTRIBUTION WIDTH 12.9 % (11.5-14.5); WHITE BLOOD COUNT 4.8 K/mm3 (4.0-10.0)
[2017-02-22 13:20] LABS: ALBUMIN 3.7 GM/DL (3.2-5.2); ALBUMIN/GLOBULIN RATIO 1.19 (1.00-1.93); ALKALINE PHOSPHATASE 106 U/L (45-117); ALT/SGPT 26 U/L (12-78); ANION GAP 5 MEQ/L (8-16); AST/SGOT 16 U/L (15-37); BILIRUBIN,TOTAL 0.6 MG/DL (0.2-1.0); BLOOD UREA NITROGEN 19 MG/DL (7-18); CALCIUM LEVEL 8.6 MG/DL (8.8-10.2); CARBON DIOXIDE LEVEL 32 MEQ/L (21-32); CHLORIDE LEVEL 106 MEQ/L (98-107); CHOLESTEROL LEVEL 167 MG/DL (<200); CREATININE FOR GFR 0.71 MG/DL (0.70-1.30); GLOMERULAR FILTRATION RATE > 60.0 (>42); GLUCOSE, FASTING 97 MG/DL (83-110); POTASSIUM SERUM 4.5 MEQ/L (3.5-5.1); SODIUM LEVEL 143 MEQ/L (136-145); TOTAL PROTEIN 6.8 GM/DL (6.4-8.2); TRIGLYCERIDES LEVEL 153 MG/DL (<150)
== END ==
LOC: M LABDRAW1 12:01
PROVIDERS: ATTEND Emergency Medicine
DX: I10 Essential (primary) hypertension (principal); E78.2 Mixed hyperlipidemia; E55.9 Vitamin D deficiency, unspecified; R53.83 Other fatigue

== ENCOUNTER 2017-07-15 09:05 | Observation (INO) | payer OTHER ==
[2017-07-15 09:51] LABS: BASO % 0.6 % (0.0-1.0); EOS # 0.2 10^3/uL (0.0-0.50); EOS % 3.4 % (0.0-3.0); HEMATOCRIT 43.2 % (42.0-52.0); HEMOGLOBIN 14.2 g/dl (14.0-18.0); IMMATURE GRANULOCYTE % 0.4 % (0-0); LYMPH # 1.9 10^3/uL (1.5-4.5); LYMPH % 37.1 % (24.0-44.0); MEAN CORPUSCULAR HEMOGLOBIN 30.1 pg (27.0-33.0); MEAN CORPUSCULAR HGB CONC 32.9 g/dl (32.0-36.5); MEAN CORPUSCULAR VOLUME 91.7 fl (80.0-96.0); MONO # 0.5 10^3/uL (0.0-0.8); MONO % 10.3 % (0.0-5.0); NEUTROPHILS # 2.4 10^3/uL (1.8-7.7); NEUTROPHILS % 48.2 % (36.0-66.0); PLATELET COUNT, AUTOMATED 152 10^3/uL (150-450); RED BLOOD COUNT 4.71 10^6/uL (4.30-6.10); RED CELL DISTRIBUTION WIDTH 13.2 % (11.5-14.5)
[2017-07-15 09:51] LABS: BEDSIDE GLUCOSE 110 MG/DL (83-110)
[2017-07-15 10:07] LABS: AMMONIA 23 uMOL/L (<32)
[2017-07-15 10:10] LABS: LACTIC ACID SEPSIS PROTOCOL 1.5 MMOL/L (0.4-2.0)
[2017-07-15 10:13] LABS: ALBUMIN 3.7 GM/DL (3.2-5.2); ALBUMIN/GLOBULIN RATIO 1.19 (1.00-1.93); ALKALINE PHOSPHATASE 107 U/L (45-117); ALT/SGPT 37 U/L (12-78); ANION GAP 5 MEQ/L (8-16); AST/SGOT 24 U/L (7-37); BILIRUBIN,DIRECT 0.1 MG/DL (0.0-0.2); BILIRUBIN,TOTAL 0.5 MG/DL (0.2-1.0); BLOOD UREA NITROGEN 23 MG/DL (7-18); CALCIUM LEVEL 8.1 MG/DL (8.8-10.2); CARBON DIOXIDE LEVEL 32 MEQ/L (21-32); CHLORIDE LEVEL 106 MEQ/L (98-107); CPK CREATINE PHOSPHOKINASE 158 U/L (39-308); CREATININE FOR GFR 0.76 MG/DL (0.70-1.30); ETHYL ALCOHOL (ETHANOL) < 0.003 % (0.000-0.010); GLOMERULAR FILTRATION RATE > 60.0 (>42); GLUCOSE, FASTING 116 MG/DL (83-110); SODIUM LEVEL 143 MEQ/L (136-145); TOTAL PROTEIN 6.8 GM/DL (6.4-8.2); TROPONIN I < 0.02 NG/ML (< 0.10)
[2017-07-15 10:26] LABS: CK-MB VALUE MASS 3.2 NG/ML (0.0-3.6); MB/CK RELATIVE INDEX 2.02 (< OR =4)
[2017-07-15 13:12] LABS: KETONE, URINE AUTO RFX NEGATIVE (NEGATIVE); LEUKOCYTE ESTERASE UR AUTO RFX NEGATIVE (NEGATIVE); MUCUS, URINE RFX SMALL (NEGATIVE); NITRITE, URINE AUTO RFX NEGATIVE (NEGATIVE); RBC, URINE AUTO RFX 2 /HPF (0-3); SPECIFIC GRAVITY UR AUTO RFX 1.016 (1.002-1.035); SQUAM EPITHELIAL CELL UR AURFX 0 /HPF (0-6); WBC, URINE AUTO RFX 2 /HPF (0-3)
[2017-07-15] MEDS: NS 1,500 ML IV ×2 (14:00)
[2017-07-15] MEDS: ONDANSETRON 4MG/2ML VIAL (J2405) IV ×2 (14:28)
[2017-07-15 16:46] LABS: CPK CREATINE PHOSPHOKINASE 138 U/L (39-308); MB/CK RELATIVE INDEX 2.17 (< OR =4); TROPONIN I 0.04 NG/ML (< 0.10)
[2017-07-15] MEDS: ATORVASTATIN 20 MG TAB PO ×2 (21:05)
[2017-07-15] MEDS: PARoxetine 20 MG TAB PO ×2 (21:06)
[2017-07-15] MEDS: MELOXICAM (MOBIC) 7.5 MG TAB PO ×2 (21:06)
[2017-07-15 21:39] LABS: CPK CREATINE PHOSPHOKINASE 129 U/L (39-308); TROPONIN I 0.03 NG/ML (< 0.10)
[2017-07-15 21:40] LABS: CK-MB VALUE MASS 2.7 NG/ML (0.0-3.6); MB/CK RELATIVE INDEX 2.09 (< OR =4)
[2017-07-16] MEDS: ACETAMINOPHEN TAB 650MG DOSE (2X325MG) PO ×2 (04:00)
[2017-07-16 04:57] LABS: HEMATOCRIT 40.3 % (42.0-52.0); HEMOGLOBIN 13.4 g/dl (14.0-18.0); MEAN CORPUSCULAR HEMOGLOBIN 30.5 pg (27.0-33.0); MEAN CORPUSCULAR HGB CONC 33.3 g/dl (32.0-36.5); MEAN CORPUSCULAR VOLUME 91.6 fl (80.0-96.0); PLATELET COUNT, AUTOMATED 150 10^3/uL (150-450); RED CELL DISTRIBUTION WIDTH 13.2 % (11.5-14.5); WHITE BLOOD COUNT 6.2 10^3/uL (4.0-10.0)
[2017-07-16 05:15] LABS: ALBUMIN/GLOBULIN RATIO 0.94 (1.00-1.93); ALKALINE PHOSPHATASE 90 U/L (45-117); ALT/SGPT 33 U/L (12-78); ANION GAP 5 MEQ/L (8-16); AST/SGOT 24 U/L (7-37); BILIRUBIN,TOTAL 0.4 MG/DL (0.2-1.0); BLOOD UREA NITROGEN 18 MG/DL (7-18); CALCIUM LEVEL 8.1 MG/DL (8.8-10.2); CARBON DIOXIDE LEVEL 30 MEQ/L (21-32); CHLORIDE LEVEL 108 MEQ/L (98-107); CK-MB VALUE MASS 1.7 NG/ML (0.0-3.6); CPK CREATINE PHOSPHOKINASE 104 U/L (39-308); CREATININE FOR GFR 0.67 MG/DL (0.70-1.30); GLOMERULAR FILTRATION RATE > 60.0 (>42); GLUCOSE, FASTING 110 MG/DL (83-110); MAGNESIUM LEVEL 2.2 MG/DL (1.8-2.4); MB/CK RELATIVE INDEX 1.63 (< OR =4); SODIUM LEVEL 143 MEQ/L (136-145); TOTAL PROTEIN 6.2 GM/DL (6.4-8.2); TROPONIN I 0.02 NG/ML (< 0.10)
[2017-07-16] MEDS: LORATADINE 10 MG TAB PO ×2 (08:06)
[2017-07-16] MEDS: FLUTICASONE PROP 0.05% NASAL SPRAY 16 GM (FLONASE) ×2 (08:06)
[2017-07-16] MEDS: ONDANSETRON 4MG/2ML VIAL (J2405) IV ×2 (09:26)
[2017-07-16] MEDS: MECLIZINE 25 MG TABLET PO ×4 (11:03→17:52)
[2017-07-16] MEDS: ATORVASTATIN 20 MG TAB PO ×2 (21:25)
[2017-07-16] MEDS: MELOXICAM (MOBIC) 7.5 MG TAB PO ×2 (21:25)
[2017-07-16] MEDS: PARoxetine 20 MG TAB PO ×2 (21:25)
[2017-07-17 05:11] LABS: HEMATOCRIT 41.8 % (42.0-52.0); HEMOGLOBIN 13.6 g/dl (14.0-18.0); MEAN CORPUSCULAR HEMOGLOBIN 29.6 pg (27.0-33.0); MEAN CORPUSCULAR HGB CONC 32.5 g/dl (32.0-36.5); MEAN CORPUSCULAR VOLUME 90.9 fl (80.0-96.0); PLATELET COUNT, AUTOMATED 153 10^3/uL (150-450); RED CELL DISTRIBUTION WIDTH 13.3 % (11.5-14.5); WHITE BLOOD COUNT 6.4 10^3/uL (4.0-10.0)
[2017-07-17 05:37] LABS: ALBUMIN 3.1 GM/DL (3.2-5.2); ALBUMIN/GLOBULIN RATIO 0.94 (1.00-1.93); ALKALINE PHOSPHATASE 86 U/L (45-117); ALT/SGPT 35 U/L (12-78); ANION GAP 4 MEQ/L (8-16); AST/SGOT 17 U/L (7-37); BILIRUBIN,TOTAL 0.4 MG/DL (0.2-1.0); BLOOD UREA NITROGEN 22 MG/DL (7-18); CALCIUM LEVEL 8.3 MG/DL (8.8-10.2); CARBON DIOXIDE LEVEL 33 MEQ/L (21-32); CHLORIDE LEVEL 108 MEQ/L (98-107); CREATININE FOR GFR 0.61 MG/DL (0.70-1.30); GLOMERULAR FILTRATION RATE > 60.0 (>42); GLUCOSE, FASTING 105 MG/DL (83-110); POTASSIUM SERUM 3.8 MEQ/L (3.5-5.1); SODIUM LEVEL 145 MEQ/L (136-145); TOTAL PROTEIN 6.4 GM/DL (6.4-8.2)
[2017-07-17] MEDS: NS 1,000 ML IV ×2 (07:45)
[2017-07-17] MEDS: ENOXAPARIN 40 MG/0.4 ML SYRINGE (J1650) SC ×2 (08:55)
[2017-07-17] MEDS: FLUTICASONE PROP 0.05% NASAL SPRAY 16 GM (FLONASE) ×2 (08:55)
[2017-07-17] MEDS: LORATADINE 10 MG TAB PO ×2 (08:55)
[2017-07-17] MEDS: MECLIZINE 25 MG TABLET PO ×2 (08:59)
[2017-07-17] MEDS: MELOXICAM (MOBIC) 7.5 MG TAB PO ×2 (20:42)
[2017-07-17] MEDS: PARoxetine 20 MG TAB PO ×2 (20:42)
[2017-07-17] MEDS: ATORVASTATIN 20 MG TAB PO ×2 (20:42)
[2017-07-18] MEDS ORDERED: SLF 3 ML SYR IV ×2 (01:00)
[2017-07-18] MEDS: MECLIZINE 25 MG TABLET PO ×6 (03:45→20:41)
[2017-07-18] MEDS: SLF 3 ML SYR IV ×6 (03:46→20:40)
[2017-07-18 04:11] LABS: HEMATOCRIT 41.2 % (42.0-52.0); HEMOGLOBIN 13.6 g/dl (14.0-18.0); MEAN CORPUSCULAR HEMOGLOBIN 29.7 pg (27.0-33.0); PLATELET COUNT, AUTOMATED 160 10^3/uL (150-450); RED BLOOD COUNT 4.58 10^6/uL (4.30-6.10); RED CELL DISTRIBUTION WIDTH 13.2 % (11.5-14.5); WHITE BLOOD COUNT 6.6 10^3/uL (4.0-10.0)
[2017-07-18 04:30] LABS: ALBUMIN/GLOBULIN RATIO 0.94 (1.00-1.93); ALKALINE PHOSPHATASE 81 U/L (45-117); ALT/SGPT 36 U/L (12-78); ANION GAP 6 MEQ/L (8-16); AST/SGOT 19 U/L (7-37); BILIRUBIN,TOTAL 0.5 MG/DL (0.2-1.0); BLOOD UREA NITROGEN 17 MG/DL (7-18); CALCIUM LEVEL 8.1 MG/DL (8.8-10.2); CARBON DIOXIDE LEVEL 33 MEQ/L (21-32); CHLORIDE LEVEL 105 MEQ/L (98-107); CREATININE FOR GFR 0.64 MG/DL (0.70-1.30); GLOMERULAR FILTRATION RATE > 60.0 (>42); GLUCOSE, FASTING 98 MG/DL (83-110); MAGNESIUM LEVEL 2.1 MG/DL (1.8-2.4); POTASSIUM SERUM 3.8 MEQ/L (3.5-5.1); SODIUM LEVEL 144 MEQ/L (136-145); TOTAL PROTEIN 6.2 GM/DL (6.4-8.2)
[2017-07-18] MEDS: ACETAMINOPHEN TAB 650MG DOSE (2X325MG) PO ×4 (08:03→15:36)
[2017-07-18] MEDS: LORATADINE 10 MG TAB PO ×2 (08:03)
[2017-07-18] MEDS: ENOXAPARIN 40 MG/0.4 ML SYRINGE (J1650) SC ×2 (08:04)
[2017-07-18] MEDS: FLUTICASONE PROP 0.05% NASAL SPRAY 16 GM (FLONASE) ×2 (08:04)
[2017-07-18] MEDS: MELOXICAM (MOBIC) 7.5 MG TAB PO ×2 (20:41)
[2017-07-18] MEDS: ATORVASTATIN 20 MG TAB PO ×2 (20:41)
[2017-07-18] MEDS: PARoxetine 20 MG TAB PO ×2 (20:42)
[2017-07-19 05:36] LABS: HEMATOCRIT 42.2 % (42.0-52.0); HEMOGLOBIN 13.9 g/dl (14.0-18.0); MEAN CORPUSCULAR HEMOGLOBIN 29.6 pg (27.0-33.0); MEAN CORPUSCULAR HGB CONC 32.9 g/dl (32.0-36.5); MEAN CORPUSCULAR VOLUME 89.8 fl (80.0-96.0); PLATELET COUNT, AUTOMATED 155 10^3/uL (150-450); WHITE BLOOD COUNT 6.8 10^3/uL (4.0-10.0)
[2017-07-19] MEDS: SLF 3 ML SYR IV ×6 (05:45→22:29)
[2017-07-19 05:57] LABS: ALBUMIN 2.8 GM/DL (3.2-5.2); ALBUMIN/GLOBULIN RATIO 0.82 (1.00-1.93); ALKALINE PHOSPHATASE 77 U/L (45-117); ALT/SGPT 30 U/L (12-78); ANION GAP 2 MEQ/L (8-16); AST/SGOT 18 U/L (7-37); BILIRUBIN,TOTAL 0.5 MG/DL (0.2-1.0); BLOOD UREA NITROGEN 18 MG/DL (7-18); CALCIUM LEVEL 8.4 MG/DL (8.8-10.2); CARBON DIOXIDE LEVEL 34 MEQ/L (21-32); CHLORIDE LEVEL 105 MEQ/L (98-107); CREATININE FOR GFR 0.61 MG/DL (0.70-1.30); GLOMERULAR FILTRATION RATE > 60.0 (>42); GLUCOSE, FASTING 98 MG/DL (83-110); MAGNESIUM LEVEL 1.9 MG/DL (1.8-2.4); POTASSIUM SERUM 3.7 MEQ/L (3.5-5.1); SODIUM LEVEL 141 MEQ/L (136-145); TOTAL PROTEIN 6.2 GM/DL (6.4-8.2)
[2017-07-19] MEDS: LORATADINE 10 MG TAB PO ×2 (08:22)
[2017-07-19] MEDS: ACETAMINOPHEN TAB 650MG DOSE (2X325MG) PO ×4 (08:23→12:17)
[2017-07-19] MEDS: ENOXAPARIN 40 MG/0.4 ML SYRINGE (J1650) SC ×2 (08:23)
[2017-07-19] MEDS: MECLIZINE 25 MG TABLET PO ×4 (08:23→21:27)
[2017-07-19] MEDS: FLUTICASONE PROP 0.05% NASAL SPRAY 16 GM (FLONASE) ×2 (08:28)
[2017-07-19] MEDS: ATORVASTATIN 20 MG TAB PO ×2 (21:27)
[2017-07-19] MEDS: PARoxetine 20 MG TAB PO ×2 (21:27)
[2017-07-19] MEDS: MELOXICAM (MOBIC) 7.5 MG TAB PO ×2 (21:27)
[2017-07-20] MEDS: SLF 3 ML SYR IV ×2 (05:04)
[2017-07-20 06:02] LABS: HEMATOCRIT 41.3 % (42.0-52.0); HEMOGLOBIN 13.8 g/dl (14.0-18.0); MEAN CORPUSCULAR HEMOGLOBIN 29.9 pg (27.0-33.0); MEAN CORPUSCULAR HGB CONC 33.4 g/dl (32.0-36.5); MEAN CORPUSCULAR VOLUME 89.6 fl (80.0-96.0); PLATELET COUNT, AUTOMATED 154 10^3/uL (150-450); RED BLOOD COUNT 4.61 10^6/uL (4.30-6.10); RED CELL DISTRIBUTION WIDTH 13.2 % (11.5-14.5)
[2017-07-20 06:21] LABS: ALBUMIN 3.2 GM/DL (3.2-5.2); ALBUMIN/GLOBULIN RATIO 1.14 (1.00-1.93); ALKALINE PHOSPHATASE 83 U/L (45-117); ALT/SGPT 32 U/L (12-78); ANION GAP 5 MEQ/L (8-16); AST/SGOT 21 U/L (7-37); BILIRUBIN,TOTAL 0.5 MG/DL (0.2-1.0); BLOOD UREA NITROGEN 20 MG/DL (7-18); CALCIUM LEVEL 8.1 MG/DL (8.8-10.2); CARBON DIOXIDE LEVEL 33 MEQ/L (21-32); CHLORIDE LEVEL 105 MEQ/L (98-107); CREATININE FOR GFR 0.65 MG/DL (0.70-1.30); GLOMERULAR FILTRATION RATE > 60.0 (>42); GLUCOSE, FASTING 95 MG/DL (83-110); MAGNESIUM LEVEL 2.1 MG/DL (1.8-2.4); SODIUM LEVEL 143 MEQ/L (136-145)
[2017-07-20] MEDS: LORATADINE 10 MG TAB PO ×2 (08:02)
[2017-07-20] MEDS: FLUTICASONE PROP 0.05% NASAL SPRAY 16 GM (FLONASE) ×2 (08:02)
[2017-07-20] MEDS: MECLIZINE 25 MG TABLET PO ×2 (08:02)
== END 2017-07-20 14:23 | disposition home or self-care (01) ==
LOC: M ED 09:05 → M ED INP 12:59 → M PCU 15:17
PROVIDERS: Internal Medicine
DX: R42 Dizziness and giddiness (principal); S09.90XA Unspecified injury of head, initial encounter; E78.5 Hyperlipidemia, unspecified; J30.2 Other seasonal allergic rhinitis; F32.9 Major depressive disorder, single episode, unspecified; W18.40XA Slipping, tripping and stumbling without falling, unspecified, initial encounter; Y93.01 Activity, walking, marching and hiking; Y92.480 Sidewalk as the place of occurrence of the external cause; Z79.899 Other long term (current) drug therapy
CPT/HCPCS: 96374; J2405

== ENCOUNTER → 2018-03-11 | Outpatient (REF) | payer OTHER ==
[2018-03-11 15:30] LABS: BASO # 0.1 10^3/uL (0.0-0.2); BASO % 0.8 % (0.0-1.0); EOS # 0.2 10^3/uL (0.0-0.50); EOS % 3.7 % (0.0-3.0); IMMATURE GRANULOCYTE % 0.6 % (0-3.0); LYMPH # 2.1 10^3/uL (1.5-4.5); LYMPH % 33.3 % (24.0-44.0); MEAN CORPUSCULAR HEMOGLOBIN 30.1 pg (27.0-33.0); MEAN CORPUSCULAR HGB CONC 32.6 g/dl (32.0-36.5); MEAN CORPUSCULAR VOLUME 92.2 fl (80.0-96.0); MONO # 0.6 10^3/uL (0.0-0.8); MONO % 9.9 % (0.0-5.0); NEUTROPHILS # 3.2 10^3/uL (1.8-7.7); NEUTROPHILS % 51.7 % (36.0-66.0); PLATELET COUNT, AUTOMATED 170 10^3/uL (150-450); RED BLOOD COUNT 4.99 10^6/uL (4.30-6.10); RED CELL DISTRIBUTION WIDTH 13.2 % (11.5-14.5); WHITE BLOOD COUNT 6.3 10^3/uL (4.0-10.0)
[2018-03-11 15:51] LABS: ALBUMIN 3.6 GM/DL (3.2-5.2); ALKALINE PHOSPHATASE 98 U/L (45-117); ALT/SGPT 22 U/L (12-78); ANION GAP 7 MEQ/L (8-16); AST/SGOT 15 U/L (7-37); BILIRUBIN,TOTAL 0.5 MG/DL (0.2-1.0); BLOOD UREA NITROGEN 17 MG/DL (7-18); CALCIUM LEVEL 8.9 MG/DL (8.8-10.2); CARBON DIOXIDE LEVEL 31 MEQ/L (21-32); CHLORIDE LEVEL 105 MEQ/L (98-107); CHOLESTEROL LEVEL 233 MG/DL (<200); CHOLESTEROL RISK RATIO 4.017 (<5); CREATININE FOR GFR 0.84 MG/DL (0.70-1.30); GLOMERULAR FILTRATION RATE > 60.0 (>42); GLUCOSE, FASTING 103 MG/DL (70-100); HDL CHOLESTEROL 58 MG/DL (>40); NON-HDL-C 175 MG/DL; POTASSIUM SERUM 4.4 MEQ/L (3.5-5.1); SODIUM LEVEL 143 MEQ/L (136-145); TOTAL PROTEIN 7.2 GM/DL (6.4-8.2); TRIGLYCERIDES LEVEL 250 MG/DL (<150)
[2018-03-11 15:58] LABS: TOTAL 25(OH) VITAMIN D 39.4 NG/ML (30.0-100.0)
== END ==
LOC: M LABDRAW1 13:10
DX: I10 Essential (primary) hypertension (principal); E78.2 Mixed hyperlipidemia; E55.9 Vitamin D deficiency, unspecified; R53.83 Other fatigue
CPT/HCPCS: 84443

== ENCOUNTER → 2018-08-15 | Outpatient (REF) | payer OTHER ==
[~2018-08-15] MED LIST: ACET500T15 PO; ATOR40TA75 PO; DRIS50003 PO; FLON1SPR; FLUT0.003 EX; LORA-243 PO; MECL-68 PO; MELO15TA28 PO; PARO40TA2 PO
[2018-08-15 13:53] LABS: BASO % 0.6 % (0.0-1.0); EOS # 0.2 10^3/uL (0.0-0.50); EOS % 3.8 % (0.0-3.0); HEMATOCRIT 44.2 % (42.0-52.0); HEMOGLOBIN 14.6 g/dl (13.5-17.5); LYMPH # 2.3 10^3/uL (1.5-4.5); LYMPH % 36.4 % (24.0-44.0); MEAN CORPUSCULAR HEMOGLOBIN 30.2 pg (27.0-33.0); MEAN CORPUSCULAR VOLUME 91.3 fl (80.0-96.0); MONO # 0.6 10^3/uL (0.0-0.8); MONO % 10.1 % (0.0-5.0); NEUTROPHILS # 3.1 10^3/uL (1.8-7.7); NEUTROPHILS % 48.3 % (36.0-66.0); PLATELET COUNT, AUTOMATED 202 10^3/uL (150-450); RED BLOOD COUNT 4.84 10^6/uL (4.30-6.10); WHITE BLOOD COUNT 6.4 10^3/uL (4.0-10.0)
[2018-08-15 14:19] LABS: HEMOGLOBIN A1c 6.4 %
[2018-08-15 14:24] LABS: RHEUMATOID FACTOR QUANT < 10.0 IU/ML (<15.0); TOTAL 25(OH) VITAMIN D 41.5 NG/ML (30.0-100.0)
[2018-08-15 14:25] LABS: FOLATE 23.8 NG/ML
[2018-08-15 14:50] LABS: ERYTHROCYTE SEDIMENTATION RATE 9 mm/hr (0-20)
[2018-08-16 09:59] LABS: VITAMIN B12 LEVEL 664 PG/ML (232-1245)
[2018-08-16 14:55] LABS: ANTINUCLEAR ANTIBODIES DIRECT Negative (Negative)
== END ==
LOC: M LABNEURO 13:24
PROVIDERS: ATTEND Physician Assistant Medical
DX: R53.83 Other fatigue (principal); R41.3 Other amnesia; R42 Dizziness and giddiness; Z79.899 Other long term (current) drug therapy

== ENCOUNTER 2018-10-04 00:54 | Emergency (ER) | payer MEDICARE, OTHER ==
[~2018-10-04] VITALS: Ht 160 cm; Wt 101.4 kg
[2018-10-04 00:55] VITALS: BP 140/77
--- NOTE | 2018-10-04 03:21 | REPVR ---
EXAM: CT Head Without Contrast EXAM DATE/TIME: 10/04/2018 1:07 AM CLINICAL HISTORY: 73 years old, male; Injury or trauma; Fall; Initial encounter; Concussion / head injury; Consciousness not specified TECHNIQUE: Axial computed tomography images of the head/brain without contrast. All CT scans at this facility use at least one of these dose optimization techniques: automated exposure control; mA and/or kV adjustment per patient size (includes targeted exams where dose is matched to clinical indication); or iterative reconstruction. COMPARISON: CT Head without contrast 07/15/2017 9:10 AM FINDINGS: There is no acute intracranial hemorrhage, extra axial hematoma, or midline shift. There is parenchymal volume loss, slightly greater involving the temporal lobes. This is similar to the prior exam. There is prominence of the ventricles similar to the prior exam and may be secondary to parenchymal volume loss. There is intracranial atherosclerosis. Mild periventricular microvascular ischemic changes again noted. No CT findings are seen at the current time to suggest changes of acute territorial vascular infarction. Note is made however, that CT changes, may lag clinical findings in acute CVA. If clinically indicated, consideration could be given to MRI with diffusion weighted imaging, due to its greater sensitivity, for detection of acute ischemic change. Bilateral slightly heterogeneous basal ganglia calcifications are again noted. Choroid plexus and pineal calcifications also seen. No pericranial scalp hematoma is seen. No acute cranial vault fracture is seen. No fluid is seen within the visualized mastoid air cells. Although incompletely evaluated, there is complete opacification of the visualized right maxillary sinus which may be slightly expansile. There is mucosal thickening and partial opacification of a few right-sided ethmoid air cells. ENT followup is advised. IMPRESSION: No evidence of an acute intracranial injury. Parenchymal volume loss, intracranial atherosclerosis and microvascular ischemic changes are similar to the prior exam. Paranasal sinus opacification. Findings and recommendations discussed above. Electronically signed by: Brodie Rush On 10/04/2018 03:21:36 AM
[2018-10-04] MEDS ORDERED: DERMABOND TOPICAL SKIN ADHESIVE TOP ONE (03:45)
[2018-10-04] MEDS ORDERED: ADACEL/BOOSTRIX VACCINE (DIPHTH/PERTUSS/ACELL/TETANUS)0.5ML SYR (90715) IM ONE (03:45)
--- NOTE | 2018-10-04 09:56 | ED PDOC ---
Post-Departure Follow-Up dr birch faxed formal report of ct head for fu Almita Quarles MD Oct 04, 2018 09:56
== END 2018-10-04 04:09 | disposition home or self-care (01) ==
LOC: M ED 00:54
DX: S01.81XA Laceration without foreign body of other part of head, initial encounter (principal); E78.5 Hyperlipidemia, unspecified; F32.9 Major depressive disorder, single episode, unspecified; W01.198A Fall on same level from slipping, tripping and stumbling with subsequent striking against other object, initial encounter; Y92.9 Unspecified place or not applicable; Y93.K9 Activity, other involving animal care; Z79.899 Other long term (current) drug therapy

== ENCOUNTER → 2019-05-31 | Outpatient (CLI) | payer MEDICARE ==
[2019-05-31 15:35] LABS: ALBUMIN 3.6 GM/DL (3.2-5.2); ALT/SGPT 19 U/L (12-78); BILIRUBIN,TOTAL 0.7 MG/DL (0.2-1.0); BLOOD UREA NITROGEN 14 MG/DL (7-18); CALCIUM LEVEL 9.3 MG/DL (8.8-10.2); CARBON DIOXIDE LEVEL 31 MEQ/L (21-32); CHLORIDE LEVEL 106 MEQ/L (98-107); CHOLESTEROL LEVEL 216 MG/DL (<200); CHOLESTEROL RISK RATIO 3.927 (<5); CREATININE FOR GFR 0.78 MG/DL (0.70-1.30); FREE T4 1.03 NG/DL (0.76-1.46); GLOMERULAR FILTRATION RATE > 60.0 (>42); GLUCOSE, FASTING 99 MG/DL (70-100); HDL CHOLESTEROL 55 MG/DL (>40); LDL CHOLESTEROL 128 MG/DL (<100); NON-HDL-C 161 MG/DL; SODIUM LEVEL 142 MEQ/L (136-145); TOTAL PROTEIN 7.2 GM/DL (6.4-8.2); TRIGLYCERIDES LEVEL 166 MG/DL (<150)
== END ==
LOC: M LAB 14:22
PROVIDERS: ATTEND Physician Assistant
DX: Z00.00 Encounter for general adult medical examination without abnormal findings (principal)

== ENCOUNTER → 2019-12-01 | Outpatient (CLI) | payer MEDICARE ==
[~2019-12-01] MED LIST changes: -MECL-68 PO; +MECL1TAB31 PO
--- NOTE | 2019-12-01 13:43 | REPPI ---
RIGHT SHOULDER, THREE VIEWS: Three views right shoulder are performed. There is no acute fracture or dislocation. There is moderate narrowing and spurring at the acromioclavicular and glenohumeral joints. There is abutment of the humeral head with the acromion with severe decreased subacromial space. This is consistent with a rotator cuff tear. There is an oval calcification along the lateral margin of the acromion. This could represent a tendinous calcification. IMPRESSION: Moderate degenerative changes. Severely decreased space in the subacromial region, consistent with rotator cuff tear. Electronically Signed by Bj Arellano MD 12/01/2019 02:45 P
--- NOTE | 2019-12-01 13:45 | REPPI ---
CERVICAL SPINE SERIES: AP and lateral views of cervical spine performed. C7 is not well visualized. There is no fracture of C1 through C6 visualized. There is normal alignment. There is straightening of the normal cervical lordosis. There is no prevertebral soft tissue swelling. There is moderate diffuse spurring of the vertebral bodies. There is moderate disc space narrowing at all levels. There is diffuse narrowing, sclerosis, and spurring at the bilateral facet joints. IMPRESSION: C7 is not visualized. Otherwise, there are moderate diffuse degenerative changes of the cervical spine. Electronically Signed by Bj Arellano MD 12/01/2019 02:46 P
== END ==
LOC: M PLAIMG 11:48
PROVIDERS: ATTEND Physician Assistant
DX: M54.2 Cervicalgia (principal); M25.511 Pain in right shoulder

== ENCOUNTER 2020-02-11 16:00 | Inpatient (IN) | payer MEDICARE, OTHER ==
[2020-02-11] MEDS ORDERED: ASPIRIN 81 MG CHEW TABLET ONE (17:07)
[2020-02-11] MEDS ORDERED: NITROGLYCERIN 0.4 MG SUBL TABLET ONE (17:50)
[2020-02-11] MEDS ORDERED: FUROSEMIDE 40MG/4ML VIAL (J1940) ONE (17:50)
[2020-02-12] MEDS ORDERED: NITROGLYCERIN 0.4 MG SUBL TABLET ONE (03:19)
[2020-02-12] MEDS ORDERED: FUROSEMIDE 40MG/4ML VIAL (J1940) ONE (03:19)
[2020-02-12] MEDS ORDERED: DOCUSATE SODIUM 100 MG CAP ONE (09:35)
[2020-02-12] MEDS ORDERED: ENOXAPARIN 40MG/0.4ML SYRINGE (J1650 PER 10MG) ONE (09:35)
[2020-02-12] MEDS ORDERED: PANTOPRAZOLE 40MG TAB (PROTONIX) ONE (09:35)
[2020-02-12] MEDS ORDERED: ASPIRIN 81 MG ENTERIC TAB ONE (09:35)
[2020-02-13] MEDS ORDERED: ENOXAPARIN 40MG/0.4ML SYRINGE (J1650 PER 10MG) ONE (08:26)
[2020-02-13] MEDS ORDERED: FUROSEMIDE 40MG/4ML VIAL (J1940) ONE (08:26)
[2020-02-13] MEDS ORDERED: DOCUSATE SODIUM 100 MG CAP ONE (08:26)
[2020-02-13] MEDS ORDERED: PANTOPRAZOLE 40MG TAB (PROTONIX) ONE (08:26)
[2020-02-13] MEDS ORDERED: ASPIRIN 81 MG ENTERIC TAB ONE (08:26)
[2020-02-13] MEDS ORDERED: METOPROLOL TART 12.5 MG PER 1/2 TAB ONE (20:07)
[2020-02-14] MEDS ORDERED: FUROSEMIDE 40MG/4ML VIAL (J1940) ONE (09:08)
[2020-02-14] MEDS ORDERED: METOPROLOL TART 12.5 MG PER 1/2 TAB ONE ×2 (09:08→22:06)
[2020-02-14] MEDS ORDERED: DOCUSATE SODIUM 100 MG CAP ONE ×2 (09:08→22:06)
[2020-02-14] MEDS ORDERED: ASPIRIN 81 MG ENTERIC TAB ONE (09:08)
[2020-02-14] MEDS ORDERED: PANTOPRAZOLE 40MG TAB (PROTONIX) ONE (09:08)
[2020-02-15] MEDS ORDERED: ENOXAPARIN 40MG/0.4ML SYRINGE (J1650 PER 10MG) ONE (10:49)
[2020-02-15] MEDS ORDERED: ASPIRIN 81 MG CHEW TABLET ONE (10:49)
[2020-02-15] MEDS ORDERED: METOPROLOL TART 12.5 MG PER 1/2 TAB ONE (10:49)
[2020-02-15] MEDS ORDERED: FUROSEMIDE 40MG/4ML VIAL (J1940) ONE (10:49)
[2020-02-15] MEDS ORDERED: DOCUSATE SODIUM 100 MG CAP ONE (10:49)
[2020-02-15] MEDS ORDERED: PANTOPRAZOLE 40MG TAB (PROTONIX) ONE (10:49)
[2020-03-21 06:52] LABS: BASO # 0.1 10^3/uL (0.0-0.2); BASO % 0.9 % (0.0-1.0); EOS # 0.2 10^3/uL (0.0-0.5); EOS % 2.5 % (0.0-3.0); HEMATOCRIT 46.7 % (42.0-52.0); HEMOGLOBIN 15.1 g/dl (13.5-17.5); LYMPH # 1.9 10^3/uL (1.5-5.0); LYMPH % 30.1 % (24.0-44.0); MEAN CORPUSCULAR HEMOGLOBIN 29.2 pg (27.0-33.0); MEAN CORPUSCULAR HGB CONC 32.3 g/dl (32.0-36.5); MEAN CORPUSCULAR VOLUME 90.3 fl (80.0-96.0); MONO # 0.7 10^3/uL (0.0-0.8); MONO % 10.4 % (0.0-5.0); NEUTROPHILS # 3.6 10^3/uL (1.5-8.5); NEUTROPHILS % 55.8 % (36.0-66.0); PLATELET COUNT, AUTOMATED 123 10^3/uL (150-450); RED BLOOD COUNT 5.17 10^6/uL (4.30-6.10); WHITE BLOOD COUNT 6.5 10^3/uL (4.0-10.0)
[2020-03-28 19:07] LABS: BLOOD UREA NITROGEN 18 MG/DL (7-18); CALCIUM LEVEL 8.5 MG/DL (8.8-10.2); CARBON DIOXIDE LEVEL 30 MEQ/L (21-32); CHLORIDE LEVEL 104 MEQ/L (98-107); CREATININE FOR GFR 0.86 MG/DL (0.70-1.30); GLOMERULAR FILTRATION RATE > 60.0 (>42); GLUCOSE, FASTING 111 MG/DL (70-100); MAGNESIUM LEVEL 2.1 MG/DL (1.8-2.4); POTASSIUM SERUM 3.5 MEQ/L (3.5-5.1); SODIUM LEVEL 143 MEQ/L (136-145)
[2020-04-03 22:05] LABS: CK-MB VALUE MASS 1.9 NG/ML (<3.6); MB/CK RELATIVE INDEX 2.16 (< OR =4); TROPONIN I 0.02 NG/ML (< 0.10)
[2020-04-03 22:06] LABS: BLOOD UREA NITROGEN 17 MG/DL (7-18); CALCIUM LEVEL 8.5 MG/DL (8.8-10.2); CARBON DIOXIDE LEVEL 27 MEQ/L (21-32); CHLORIDE LEVEL 106 MEQ/L (98-107); CREATININE FOR GFR 0.92 MG/DL (0.70-1.30); GLOMERULAR FILTRATION RATE > 60.0 (>42); GLUCOSE, FASTING 96 MG/DL (70-100); NT-PRO BNP 5270 PG/ML (<125); SODIUM LEVEL 142 MEQ/L (136-145); TROPONIN I 0.02 NG/ML (< 0.10)
[2020-04-04 11:06] LABS: BASO % 0.6 % (0.0-1.0); EOS # 0.1 10^3/uL (0.0-0.5); EOS % 1.4 % (0.0-3.0); HEMATOCRIT 45.9 % (42.0-52.0); LYMPH # 1.3 10^3/uL (1.5-5.0); LYMPH % 18.8 % (24.0-44.0); MEAN CORPUSCULAR HEMOGLOBIN 29.4 pg (27.0-33.0); MEAN CORPUSCULAR HGB CONC 32.7 g/dl (32.0-36.5); MEAN CORPUSCULAR VOLUME 89.8 fl (80.0-96.0); MONO # 0.6 10^3/uL (0.0-0.8); MONO % 8.9 % (0.0-5.0); NEUTROPHILS # 4.7 10^3/uL (1.5-8.5); NEUTROPHILS % 69.8 % (36.0-66.0); PLATELET COUNT, AUTOMATED 141 10^3/uL (150-450); RED BLOOD COUNT 5.11 10^6/uL (4.30-6.10); WHITE BLOOD COUNT 6.7 10^3/uL (4.0-10.0)
[2020-04-04 11:07] LABS: INR 1.1; PARTIAL THROMBOPLASTIN TIME 28.2 SECONDS (25.0-38.4); PROTHROMBIN TIME 14.5 SECONDS (11.8-14.0)
[2020-04-05 01:24] LABS: HEMATOCRIT 47.8 % (42.0-52.0); HEMOGLOBIN 15.5 g/dl (13.5-17.5); MEAN CORPUSCULAR HEMOGLOBIN 29.8 pg (27.0-33.0); MEAN CORPUSCULAR HGB CONC 32.4 g/dl (32.0-36.5); MEAN CORPUSCULAR VOLUME 91.9 fl (80.0-96.0); PLATELET COUNT, AUTOMATED 160 10^3/uL (150-450); WHITE BLOOD COUNT 7.6 10^3/uL (4.0-10.0)
--- NOTE | 2020-04-05 07:08 | ECGEPIP ---
SINUS RHYTHM RAD PRIOR INFERIOR LA PRIOR ANTEROSEPTAL LA MOD. T-WAVE ABNORMALITY SEE SCANNED DOWNTIME REPORT MTDD
--- NOTE | 2020-04-05 07:14 | ECGEPIP ---
SINUS RHYTHM RIGHT VENTRICULAR HYPERTROPHY POSSIBLE PRIOR INFERIOR UT PRWP SEE SCANNED DOWNTIME REPORT MTDD
[2020-04-06 15:28] LABS: HEMATOCRIT 45.6 % (42.0-52.0); MEAN CORPUSCULAR HEMOGLOBIN 29.6 pg (27.0-33.0); MEAN CORPUSCULAR HGB CONC 32.9 g/dl (32.0-36.5); MEAN CORPUSCULAR VOLUME 90.1 fl (80.0-96.0); PLATELET COUNT, AUTOMATED 146 10^3/uL (150-450); RED BLOOD COUNT 5.06 10^6/uL (4.30-6.10); WHITE BLOOD COUNT 6.5 10^3/uL (4.0-10.0)
--- NOTE | 2020-04-10 08:37 | ECHO ---
DATE OF PROCEDURE: 02/12/2020 Age: 74 years Gender: Male Height: 63 inches Weight: 183 pounds, body surface area 1.86 sq m. Inpatient PCU room 3224 REFERRING PROVIDER: Marianela King NP INDICATION: Congestive heart failure (CHF). MEASUREMENTS: 2D Measurements: RV - 4.6 cm LV - 3.8 cm Septum 1.3 cm Posterior wall 1.3 cm Aortic root 4.2 cm LA - 4.0 cm LVEF 65% Doppler Measurements: AV 1.6 m/s LVOT - 0.93 m/s LVOT diameter 1.8 cm MV-E 51, A 102, E/A ratio 0.5 Early mitral deceleration time 132 m/s E prime 6.1, A prime medial 10.4, E prime lateral 7.1 Average E/E prime ratio 7.9/PCWP 11.2 mmHg PV - 0.6 m/s Pulmonary artery acceleration time 85 m/s RVSP 69 mmHg IVC 2.2 cm COMMENTS: Normal sinus rhythm without intraventricular conduction disturbance. M Mode and two dimensional echocardiography was performed with pulse, continuous wave, color flow, and tissue Doppler studies. Borderline left ventricular hypertrophy with septal wall motion abnormality likely due to right ventricular pressure overload yet preserved global resting left ventricular systolic function. Mildly dilated left atrium with grade 1 left ventricular (LV) diastolic dysfunction but clearly normal estimated mean left atrial pressure. Moderately dilated right heart chambers with right ventricular hypokinesis and Doppler evidence of severe pulmonary hypertension. Mildly dilated inferior vena cava (IVC) with reduced respiratory collapse in keeping with elevated central venous pressure/right heart failure. Mildly dilated aortic root but normal ascending aorta diameter. Mild aortic valvular sclerosis without stenosis and very mild insufficiency. Moderate mitral annular calcification without inflow tract obstruction but mild insufficiency. Normal appearing tricuspid valve with at least mild to moderate insufficiency. No apparent intracardiac mass. Small posterior pericardial effusion measuring 0.5 - 0.9 cm without evidence of cardiac chamber compression. MTDD
--- NOTE | 2020-04-10 10:38 | ECGEPIP ---
[facility] Test Date: 2020-02-12 Pat Name: STEFANI HERNANDEZ Department: Room: [place] [address] Gender: Male Foreign Language Interpreter: HIGINIO : 1945 Requested By: Angelica Charles Order Number: [id number] Reading MD: Bernardo Ghosh Measurements Intervals [place] Rate: 91 P: 47 MI: 173 QRS: 14 QRSD: 95 T: -60 QT: 422 QTc: 521 Interpretive Statements SINUS RHYTHM INDETERMINATE AXIS-LOW VOLTAGE POOR R WAVE PROGRESSION POSSIBLE ANTERIOR MYOCARDIAL INFARCTION, OF INDETERMINATE AGE BODY HABITUS VS COPD CLINICAL CORRELATION ADVISED R/O PRIOR AWMI/IWMA SEE SCANNED DOWNTIME REPORT
[2020-04-27 14:05] LABS: CHOLESTEROL LEVEL 174 MG/DL (<200); CHOLESTEROL RISK RATIO 3.8 (<5); HDL CHOLESTEROL 46 MG/DL (>40); LDL CHOLESTEROL 96 MG/DL (<100); MAGNESIUM LEVEL 2.1 MG/DL (1.8-2.4); NON-HDL-C 128 MG/DL; TRIGLYCERIDES LEVEL 159 MG/DL (<150); TROPONIN I 0.03 NG/ML (< 0.10)
[2020-04-27 14:07] LABS: BLOOD UREA NITROGEN 20 MG/DL (7-18); CREATININE FOR GFR 0.95 MG/DL (0.70-1.30); GLOMERULAR FILTRATION RATE > 60.0 (>42); GLUCOSE, FASTING 112 MG/DL (70-100)
[2020-04-27 14:08] LABS: ALBUMIN 3.4 GM/DL (3.2-5.2); ALT/SGPT 23 IU/L (0-32); BILIRUBIN,TOTAL 0.8 MG/DL (0.2-1.0); CALCIUM LEVEL 8.4 MG/DL (8.8-10.2); CARBON DIOXIDE LEVEL 28 mmol/L (20-29); CHLORIDE LEVEL 106 MEQ/L (98-107); POTASSIUM SERUM 3.6 MEQ/L (3.5-5.1); SODIUM LEVEL 139 MEQ/L (136-145); TOTAL PROTEIN 6.7 GM/DL (6.4-8.2)
[2020-05-06 13:48] LABS: ALBUMIN 3.2 GM/DL (3.2-5.2); ALT/SGPT 21 U/L (12-78); BILIRUBIN,TOTAL 0.5 MG/DL (0.2-1.0); BLOOD UREA NITROGEN 22 MG/DL (7-18); CALCIUM LEVEL 8.6 MG/DL (8.8-10.2); CARBON DIOXIDE LEVEL 29 MEQ/L (21-32); CHLORIDE LEVEL 105 MEQ/L (98-107); CREATININE FOR GFR 0.94 MG/DL (0.70-1.30); GLOMERULAR FILTRATION RATE > 60.0 (>42); GLUCOSE, FASTING 111 MG/DL (70-100); POTASSIUM SERUM 3.6 MEQ/L (3.5-5.1); SODIUM LEVEL 143 MEQ/L (136-145); TOTAL PROTEIN 6.7 GM/DL (6.4-8.2)
[2020-05-08 14:06] LABS: ALT/SGPT 18 U/L (12-78); BILIRUBIN,TOTAL 0.7 MG/DL (0.2-1.0); BLOOD UREA NITROGEN 21 MG/DL (7-18); CALCIUM LEVEL 8.9 MG/DL (8.8-10.2); CARBON DIOXIDE LEVEL 34 MEQ/L (21-32); CHLORIDE LEVEL 103 MEQ/L (98-107); CREATININE FOR GFR 0.89 MG/DL (0.70-1.30); GLOMERULAR FILTRATION RATE > 60.0 (>42); GLUCOSE, FASTING 107 MG/DL (70-100); POTASSIUM SERUM 3.7 MEQ/L (3.5-5.1); SODIUM LEVEL 140 MEQ/L (136-145); TOTAL PROTEIN 6.3 GM/DL (6.4-8.2)
== END 2020-02-15 10:50 | disposition home or self-care (01) | DRG 293 ==
LOC: M ED 16:00 → M PCU 22:00
PROVIDERS: ADMIT Psychiatry & Neurology Psychiatry; ATTEND Internal Medicine
DX: I50.33 Acute on chronic diastolic (congestive) heart failure (principal); R07.89 Other chest pain; M17.0 Bilateral primary osteoarthritis of knee; M19.039 Primary osteoarthritis, unspecified wrist; Z79.82 Long term (current) use of aspirin; Z79.899 Other long term (current) drug therapy; Z87.891 Personal history of nicotine dependence

== ENCOUNTER 2020-02-23 06:36 | Inpatient (IN) | payer MEDICARE, OTHER ==
[2020-02-23] MEDS ORDERED: FUROSEMIDE 40MG/4ML VIAL (J1940) ONE (06:46)
[2020-02-24] MEDS ORDERED: LEVALBUTEROL HFA 45MCG/ACT 15 GM INHALER ONE (07:00)
[2020-02-24] MEDS ORDERED: IPRATROPIUM HFA INHALER 12.9 GRAMS (ATROVENT HFA) ONE (07:00)
[2020-02-24] MEDS ORDERED: methylPREDNISolone 40MG 1ML VIAL As Ordered ONE ×2 (10:50→21:10)
[2020-02-24] MEDS ORDERED: methylPREDNISolone 40MG 1ML VIAL ONE ×2 (10:50→21:10)
[2020-02-24] MEDS ORDERED: FUROSEMIDE 20 MG TAB ONE (10:50)
[2020-02-24] MEDS ORDERED: FUROSEMIDE 20 MG TAB As Ordered ONE (10:51)
[2020-02-25] MEDS ORDERED: PANTOPRAZOLE 40MG TAB (PROTONIX) ONE ×2 (00:04→08:02)
[2020-02-25] MEDS ORDERED: PANTOPRAZOLE 40MG TAB (PROTONIX) As Ordered ONE ×2 (00:04→08:02)
[2020-02-25] MEDS ORDERED: methylPREDNISolone 40MG 1ML VIAL ONE ×2 (08:02→20:47)
[2020-02-25] MEDS ORDERED: FUROSEMIDE 20 MG TAB As Ordered ONE (08:02)
[2020-02-25] MEDS ORDERED: FUROSEMIDE 20 MG TAB ONE (08:02)
[2020-02-25] MEDS ORDERED: methylPREDNISolone 40MG 1ML VIAL As Ordered ONE ×2 (08:02→20:47)
[2020-02-25] MEDS ORDERED: IPRATROPIUM HFA INHALER 12.9 GRAMS (ATROVENT HFA) ONE (10:00)
[2020-02-25] MEDS ORDERED: LEVALBUTEROL HFA 45MCG/ACT 15 GM INHALER ONE (10:00)
[2020-02-25] MEDS ORDERED: ACETAMINOPHEN TAB 650MG DOSE (2X325MG) As Ordered ONE (22:46)
[2020-02-25] MEDS ORDERED: ACETAMINOPHEN TAB 650MG DOSE (2X325MG) ONE (22:46)
[2020-02-26] MEDS ORDERED: methylPREDNISolone 125MG 2ML VIAL ONE (08:40)
[2020-02-26] MEDS ORDERED: FUROSEMIDE 20 MG TAB ONE (08:40)
[2020-02-26] MEDS ORDERED: PANTOPRAZOLE 40MG TAB (PROTONIX) ONE (08:40)
[2020-02-26] MEDS ORDERED: IPRATROPIUM HFA INHALER 12.9 GRAMS (ATROVENT HFA) ONE (10:00)
[2020-02-26] MEDS ORDERED: LEVALBUTEROL HFA 45MCG/ACT 15 GM INHALER ONE (10:00)
[2020-02-27] MEDS ORDERED: FUROSEMIDE 40 MG TAB ONE (09:00)
[2020-02-27] MEDS ORDERED: PANTOPRAZOLE 40MG TAB (PROTONIX) ONE (09:00)
[2020-02-27] MEDS ORDERED: predniSONE 20 MG TAB ONE (09:00)
[2020-02-27] MEDS ORDERED: LEVALBUTEROL HFA 45MCG/ACT 15 GM INHALER ONE (10:00)
[2020-02-27] MEDS ORDERED: IPRATROPIUM HFA INHALER 12.9 GRAMS (ATROVENT HFA) ONE (10:00)
--- NOTE | 2020-04-04 11:11 | ECGEPIP ---
SINUS RHYTHM WITH MARKED SINUS ARRHYTHMIA INDETERMINATE AXIS LOW QRS VOLTAGE IN PRECORDIAL LEADS INCOMPLETE RIGHT BUNDLE BRANCH BLOCK INFERIOR MYOCARDIAL INFARCTION, OF INDETERMINATE AGE ANTEROSEPTAL MYOCARDIAL INFARCTION, OF INDETERMINATE AGE MODERATE T-WAVE ABNORMALITY, CONSIDER LATERAL ISCHEMIA ABNORMAL ECG CLINICAL CORRELATION SEE SCANNED DOWNTIME REPORT MTDD
[2020-04-07 16:29] LABS: BASO # 0.1 10^3/uL (0.0-0.2); EOS # 0.2 10^3/uL (0.0-0.5); EOS % 2.3 % (0.0-3.0); HEMATOCRIT 48.5 % (42.0-52.0); HEMOGLOBIN 15.7 g/dl (13.5-17.5); LYMPH # 2.3 10^3/uL (1.5-5.0); LYMPH % 32.1 % (24.0-44.0); MEAN CORPUSCULAR HEMOGLOBIN 29.3 pg (27.0-33.0); MEAN CORPUSCULAR HGB CONC 32.4 g/dl (32.0-36.5); MEAN CORPUSCULAR VOLUME 90.7 fl (80.0-96.0); MONO # 0.6 10^3/uL (0.0-0.8); MONO % 9.1 % (0.0-5.0); NEUTROPHILS # 3.9 10^3/uL (1.5-8.5); NEUTROPHILS % 55.1 % (36.0-66.0); PLATELET COUNT, AUTOMATED 207 10^3/uL (150-450); RED BLOOD COUNT 5.35 10^6/uL (4.30-6.10)
--- NOTE | 2020-04-11 11:27 | ECGEPIP ---
[facility] Test Date: 2020-02-24 Pat Name: STEFANI HERNANDEZ Department: Room: [place] [address] Gender: Male Glue Spreader: ROSALINDA : 1945 Requested By: ELIZABETH GARSIA Order Number: [id number] Reading MD: Chase Fernando Measurements Intervals [place] Rate: 96 P: 15 WV: 156 QRS: 171 QRSD: 88 T: -68 QT: 380 QTc: 482 Interpretive Statements NORMAL SINUS RHYTHM POSSIBLE LEFT ATRIAL ENLARGEMENT INDETERMINATE AXIS LOW QRS VOLTAGE IN PRECORDIAL LEADS POSSIBLE INFERIOR MYOCARDIAL INFARCTION, OF INDETERMINATE AGE ANTEROSEPTAL MYOCARDIAL INFARCTION, OF INDETERMINATE AGE MODERATE T-WAVE ABNORMALITY, CONSIDER LATERAL ISCHEMIA PRIOR TRACING N/A SEE SCANNED DOWNTIME REPORT
[2020-04-12 14:45] LABS: HEMATOCRIT 42.9 % (42.0-52.0); MEAN CORPUSCULAR HEMOGLOBIN 29.2 pg (27.0-33.0); MEAN CORPUSCULAR HGB CONC 32.6 g/dl (32.0-36.5); MEAN CORPUSCULAR VOLUME 89.6 fl (80.0-96.0); PLATELET COUNT, AUTOMATED 157 10^3/uL (150-450); RED BLOOD COUNT 4.79 10^6/uL (4.30-6.10); WHITE BLOOD COUNT 6.2 10^3/uL (4.0-10.0)
[2020-04-12 18:42] LABS: HEMATOCRIT 44.4 % (42.0-52.0); HEMOGLOBIN 14.8 g/dl (13.5-17.5); MEAN CORPUSCULAR HEMOGLOBIN 30.1 pg (27.0-33.0); MEAN CORPUSCULAR HGB CONC 33.3 g/dl (32.0-36.5); MEAN CORPUSCULAR VOLUME 90.2 fl (80.0-96.0); PLATELET COUNT, AUTOMATED 177 10^3/uL (150-450); RED BLOOD COUNT 4.92 10^6/uL (4.30-6.10)
[2020-04-17 11:25] LABS: HEMATOCRIT 43.5 % (42.0-52.0); HEMOGLOBIN 14.4 g/dl (13.5-17.5); MEAN CORPUSCULAR HEMOGLOBIN 30.1 pg (27.0-33.0); MEAN CORPUSCULAR HGB CONC 33.1 g/dl (32.0-36.5); PLATELET COUNT, AUTOMATED 170 10^3/uL (150-450); RED BLOOD COUNT 4.78 10^6/uL (4.30-6.10); WHITE BLOOD COUNT 14.5 10^3/uL (4.0-10.0)
[2020-05-13 12:38] LABS: ALBUMIN 3.7 GM/DL (3.2-5.2); ALT/SGPT 96 U/L (12-78); BILIRUBIN,TOTAL 0.6 MG/DL (0.2-1.0); BLOOD UREA NITROGEN 24 MG/DL (7-18); CALCIUM LEVEL 8.9 MG/DL (8.8-10.2); CARBON DIOXIDE LEVEL 29 MEQ/L (21-32); CHLORIDE LEVEL 105 MEQ/L (98-107); CK-MB VALUE MASS 1.6 NG/ML (<3.6); CPK CREATINE PHOSPHOKINASE 84 U/L (39-308); CREATININE FOR GFR 1.08 MG/DL (0.70-1.30); GLOMERULAR FILTRATION RATE > 60.0 (>42); GLUCOSE, FASTING 109 MG/DL (70-100); NT-PRO BNP 5045 PG/ML (<125); SODIUM LEVEL 140 MEQ/L (136-145); TOTAL PROTEIN 7.6 GM/DL (6.4-8.2)
[2020-05-20 21:57] LABS: ALBUMIN 2.9 GM/DL (3.2-5.2); ALT/SGPT 58 U/L (12-78); BILIRUBIN,TOTAL 0.6 MG/DL (0.2-1.0); BLOOD UREA NITROGEN 25 MG/DL (7-18); CALCIUM LEVEL 8.6 MG/DL (8.8-10.2); CARBON DIOXIDE LEVEL 31 MEQ/L (21-32); CHLORIDE LEVEL 108 MEQ/L (98-107); CREATININE FOR GFR 0.87 MG/DL (0.70-1.30); GLOMERULAR FILTRATION RATE > 60.0 (>42); GLUCOSE, FASTING 101 MG/DL (70-100); MAGNESIUM LEVEL 2.1 MG/DL (1.8-2.4); POTASSIUM SERUM 3.6 MEQ/L (3.5-5.1); SODIUM LEVEL 144 MEQ/L (136-145); TOTAL PROTEIN 6.1 GM/DL (6.4-8.2)
[2020-05-20 23:12] LABS: BLOOD UREA NITROGEN 28 MG/DL (7-18); CALCIUM LEVEL 8.6 MG/DL (8.8-10.2); CARBON DIOXIDE LEVEL 28 MEQ/L (21-32); CHLORIDE LEVEL 109 MEQ/L (98-107); CHOLESTEROL LEVEL 183 MG/DL (<200); GLOMERULAR FILTRATION RATE > 60.0 (>42); GLUCOSE, FASTING 159 MG/DL (70-100); HDL CHOLESTEROL 50 MG/DL (>40); LDL CHOLESTEROL 121 MG/DL (<100); NON-HDL-C 133 MG/DL; POTASSIUM SERUM 4.2 MEQ/L (3.5-5.1); SODIUM LEVEL 142 MEQ/L (136-145); TRIGLYCERIDES LEVEL 59 MG/DL (<150)
[2020-05-21 04:12] LABS: BLOOD UREA NITROGEN 30 MG/DL (7-18); CARBON DIOXIDE LEVEL 27 MEQ/L (21-32); CHLORIDE LEVEL 108 MEQ/L (98-107); CREATININE FOR GFR 1.06 MG/DL (0.70-1.30); GLOMERULAR FILTRATION RATE > 60.0 (>42); GLUCOSE, FASTING 143 MG/DL (70-100); POTASSIUM SERUM 4.4 MEQ/L (3.5-5.1); SODIUM LEVEL 142 MEQ/L (136-145)
== END 2020-02-27 12:00 | disposition home or self-care (01) | DRG 191 ==
LOC: M ED 06:36 → M MS5PR 15:00
PROVIDERS: ADMIT Internal Medicine; ATTEND Internal Medicine
DX: J44.1 Chronic obstructive pulmonary disease with (acute) exacerbation (principal); I50.32 Chronic diastolic (congestive) heart failure; Z87.891 Personal history of nicotine dependence; K21.9 Gastro-esophageal reflux disease without esophagitis

== ENCOUNTER 2020-03-20 11:01 | Inpatient (IN) | payer OTHER, MEDICARE ==
[~2020-03-20] VITALS: Ht 160 cm; Wt 83.1 kg
[2020-03-20] MEDS: COMBIVENT RESPIMAT 100-20MCG INHALER 4GM INH SCH (12:10)
--- NOTE | 2020-03-20 12:14 | REPVR ---
PROCEDURE INFORMATION: Exam: XR Chest, 1 View Exam date and time: 03/20/2020 11:43 AM Age: 74 years old Clinical indication: Shortness of breath; Additional info: Dyspnea/cough TECHNIQUE: Imaging protocol: XR of the chest Views: 1 view. COMPARISON: DE Chest, 2 view PA, Lat 02/12/2020 8:35 AM. At the time of dictation, the images of the prior study are available, but the report is not. FINDINGS: Limitations: Image quality is limited by AP portable technique. Lungs: Partial apical lordotic projection. The lungs are clear. Pleural space: No significant pleural effusion. No pneumothorax. Heart/Mediastinum: The cardiac silhouette is normal in size. The mediastinal contour is normal. Bones/joints: No acute osseous abnormalities are identified. Superior subluxation of the both humeral heads a marked narrowing of the acromial humeral space is indicate large bilateral superior rotator cuff tears. Soft tissues: Unremarkable. IMPRESSION: 1. No acute thoracic abnormality. 2. No interval change when compared to most recent x-ray. Electronically signed by: Michael Peace On 03/20/2020 12:13:59 PM
[2020-03-20 12:21] LABS: BASO % 0.3 % (0.0-1.0); EOS # 0.1 10^3/uL (0.0-0.5); EOS % 0.8 % (0.0-3.0); HEMATOCRIT 52.2 % (42.0-52.0); LYMPH # 1.4 10^3/uL (1.5-5.0); LYMPH % 18.4 % (24.0-44.0); MEAN CORPUSCULAR HEMOGLOBIN 29.8 pg (27.0-33.0); MEAN CORPUSCULAR HGB CONC 32.6 g/dl (32.0-36.5); MEAN CORPUSCULAR VOLUME 91.4 fl (80.0-96.0); MONO # 0.5 10^3/uL (0.0-0.8); MONO % 6.2 % (0.0-5.0); NEUTROPHILS # 5.5 10^3/uL (1.5-8.5); NEUTROPHILS % 73.9 % (36.0-66.0); PLATELET COUNT, AUTOMATED 123 10^3/uL (150-450); RED BLOOD COUNT 5.71 10^6/uL (4.30-6.10); WHITE BLOOD COUNT 7.4 10^3/uL (4.0-10.0)
[2020-03-20 13:03] LABS: CALCIUM LEVEL 8.7 MG/DL (8.8-10.2); CREATININE FOR GFR 1.28 MG/DL (0.70-1.30); GLOMERULAR FILTRATION RATE 58.5 (>42); POTASSIUM SERUM 4.1 MEQ/L (3.5-5.1)
[2020-03-20 13:04] LABS: ALBUMIN 3.3 GM/DL (3.2-5.2); BILIRUBIN,DIRECT 0.4 MG/DL (0.0-0.2); BILIRUBIN,TOTAL 1.8 MG/DL (0.2-1.0); CK-MB VALUE MASS 3.2 NG/ML (<3.6); MB/CK RELATIVE INDEX 4.44 (< OR =4); THYROID STIMULATING HORMONE 2.56 uIU/ML (0.358-3.740); THYROXINE (T4) 10.8 UG/DL (4.5-12.0); TOTAL PROTEIN 6.5 GM/DL (6.4-8.2); TROPONIN I 0.1 NG/ML (< 0.10)
[2020-03-20] MEDS ORDERED: dexameTHASONE 20MG/5ML VIAL (J1100 PER 1MG) IV ONE (13:30)
[2020-03-20] MEDS ORDERED: ISOVUE-370 76% 100ML VIAL As Ordered ONE (13:30)
[2020-03-20 13:52] LABS: INR 1.13; PROTHROMBIN TIME 14.7 SECONDS (11.8-14.0)
[2020-03-20 14:12] LABS: D-DIMER QUANT > 4001 ng/ml (<500)
--- NOTE | 2020-03-20 14:36 | REPVR ---
PROCEDURE INFORMATION: Exam: CT Angiography Chest With Contrast Exam date and time: 03/20/2020 2:04 PM Age: 74 years old Clinical indication: Shortness of breath; Additional info: SOB, elevated lfts TECHNIQUE: Imaging protocol: Computed tomographic angiography of the chest with intravenous contrast. 3D rendering (Not supervised by radiologist): MIP and/or 3D reconstructed images were created by the technologist. Radiation optimization: All CT scans at this facility use at least one of these dose optimization techniques: automated exposure control; mA and/or kV adjustment per patient size (includes targeted exams where dose is matched to clinical indication); or iterative reconstruction. Contrast material: ISOVUE 370; Contrast volume: 100 ml; Contrast route: INTRAVENOUS (IV); COMPARISON: CR PORTABLE CHEST X-RAY 03/20/2020 11:49 AM FINDINGS: Pulmonary arteries: There are no filling defects in the pulmonary arterial tree to suggest a pulmonary embolus. The main pulmonary artery is 3.7 cm. The right pulmonary artery is 2.7 cm, and the left pulmonary arteries 2.7 cm. The lobar and segmental pulmonary arteries are also dilated. Aorta: Unremarkable. No aortic aneurysm. No aortic dissection. Lungs: Heterogeneous ground-glass mosaic attenuation of the pulmonary parenchyma, which is consistent with either air trapping from underlying small airways disease or chronic pulmonary vascular disease. No pulmonary consolidation. Multiple small calcified granulomas in the left lung. Pleural space: No pleural effusion. Heart: Mild/moderate pericardial effusion. Most of the effusion is posterior, where it measures up to 15 mm. Mild cardiomegaly. Marked dilatation of the right ventricle and dilated central pulmonary arteries are consistent with pulmonary arterial hypertension. Mediastinal space: The trachea and bronchial tree are normal. Lymph nodes: There is no hilar, mediastinal or axillary lymphadenopathy. Bones/joints: Unremarkable. No acute fracture. Soft tissues: Unremarkable. IMPRESSION: 1. No pulmonary embolus. 2. Mild cardiomegaly. Marked dilatation of the right ventricle and central pulmonary arteries is consistent with pulmonary arterial hypertension. Confirmation with echocardiography is recommended. 3. Mild/moderate pericardial effusion. Most of the effusion is posterior, where it measures up to 15 mm. 4. Heterogeneous ground-glass mosaic attenuation of the pulmonary parenchyma, which is consistent with either air trapping from underlying small airways disease or chronic pulmonary vascular disease. No pulmonary consolidation. Electronically signed by: Michael Peace On 03/20/2020 14:36:20 PM
[2020-03-20] MEDS ORDERED: FURO40TA2 PO (14:43)
[2020-03-20] MEDS ORDERED: METO1TAB87 PO (14:43)
[2020-03-20] MEDS ORDERED: GABA-843 PO (14:43)
--- NOTE | 2020-03-20 15:30 | REPVR ---
PROCEDURE INFORMATION: Exam: CT Abdomen And Pelvis With Contrast Exam date and time: 03/20/2020 2:04 PM Age: 74 years old Clinical indication: Abnormal findings; Abnormal lab test; Elevated liver enzymes; Additional info: SOB, elevated lfts TECHNIQUE: Imaging protocol: Computed tomography of the abdomen and pelvis with intravenous contrast. Radiation optimization: All CT scans at this facility use at least one of these dose optimization techniques: automated exposure control; mA and/or kV adjustment per patient size (includes targeted exams where dose is matched to clinical indication); or iterative reconstruction. Contrast material: ISOVUE 370; Contrast volume: 100 ml; Contrast route: INTRAVENOUS (IV); COMPARISON: No relevant prior studies available. FINDINGS: Liver: Heterogeneous enhancement of the liver parenchyma without discrete mass. It is nonspecific. The liver is normal in size. Gallbladder and bile ducts: Normal. No calcified stones. No ductal dilation. Pancreas: Normal. No ductal dilation. Spleen: Normal. No splenomegaly. Adrenals: Normal. No mass. Kidneys and ureters: Normal. No hydronephrosis. Stomach and bowel: A hiatal hernia is 3.5 cm in length. The stomach is grossly normal, but evaluation of the gastric wall is limited because the stomach is decompressed. Small bowel loops are normal in caliber. Mild colonic diverticulosis without evidence of diverticulitis. The colon is otherwise unremarkable. No acute colonic distention or inflammation. Small bowel loops are normal in caliber. Appendix: No evidence of appendicitis. Intraperitoneal space: Unremarkable. No free air. No significant fluid collection. Vasculature: Unremarkable. No abdominal aortic aneurysm. Lymph nodes: Upper abdominal and retroperitoneal lymphadenopathy. The diaphragmatic lymph node adjacent to the caudate lobe has a short axis of 11 mm (image 32). A celiac lymph node has a short axis of 10 mm (image 37). An aortocaval lymph node has a short axis of 15 mm (axial image 46). An interaortocaval lymph node has a short axis of 11 mm (image 61). A para-aortic lymph node has a short axis of 10 mm (image 72). No pelvic or inguinal lymphadenopathy. Bladder: Urinary bladder is normal without wall thickening, mass or stone. Reproductive: Mild prostate enlargement. Multiple prominent central prostatic calcifications. Bones/joints: Moderate multifactorial spinal stenosis at L3-L4 and L4-L5. No acute fracture. Severe disc narrowing and degeneration from L1-L5. Soft tissues: Unremarkable. IMPRESSION: 1. Heterogeneous enhancement of the liver parenchyma without discrete mass. It is nonspecific. In this clinical setting, it is most likely due to passive hepatic congestion. Diffuse hepatic parenchymal disease may cause a similar appearance. 2. Mild colonic diverticulosis without evidence of diverticulitis. 3. Upper abdominal and retroperitoneal lymphadenopathy. 4. Moderate multifactorial spinal stenosis at L3-L4 and L4-L5. Severe disc narrowing and degeneration from L1-L5. Electronically signed by: Michael Peace On 03/20/2020 15:30:15 PM
[2020-03-20] MEDS ORDERED: FUROSEMIDE 40MG/4ML VIAL (J1940) IV ONE (15:45)
[2020-03-20] MEDS ORDERED: NS 500 ML IV ONE (16:15)
[2020-03-20] MEDS ORDERED: BENZ-18 PO (16:23)
[2020-03-20] MEDS ORDERED: MELO15TA28 PO (16:23)
[2020-03-20] MEDS ORDERED: ADV250INH INH (16:36)
--- NOTE | 2020-03-20 18:19 | HPEPDOC ---
[facility] Medical History & Physical Date of Admission Mar 20, 2020 Date of Service: Mar 20, 2020 Attending Physician: ALINE POWERS MD History and Physical CHIEF COMPLAINT: SOB and HERNANDEZ HISTORY OF PRESENT ILLNESS: 74 yo man with recently admitted for CHF during [facility]-down[facility] in 02/2020 and noted to have a small pericardial effusion at the time on CT chest, had some diuresis and discharged home with follow with Dr. Rogers who now returns to the ED reporting dyspnea on exertion and increasingly even at rest now. In the ED, he has soft BPs to 95/65, saturating low 80s on room air and was placed on oxygen, given combivent and dexamethasone 10 IV once with some mild improvement. Workup revealed a non ischemic EKG, troponin of 0.1, D-dimer >4000, CTA chest without a PE but moderate cardiomegaly with large RV and evidence of pulmonary hypertension and moderate pericardial effusion, while CT A/P showed some hepatic congestion, mild diverticulosis and some RP adenopathy[place] 44074, TSH and free T4 were wnl, AST 225, ALT 200, alk phos 247, WBC 7.4, hgb 17, hct 52.[address] Anderson consulted Dr. Monge for the pericardial effusion that appeared to have increased in size since his last CT and he had a STAT TTE that on review with Dr. Monge was actually quite small and unlikely to be the cause of his symptoms. Dr. Anderson wanted to give him some lasix but given his soft to low BPs, held off and Dr. Monge recommended 500cc bolus which he tolerated well. I am not admitting him to medicine for HFpEF exacerbation and severe pulmonary hypertension and consulted Dr. Kebede who will see him tomorrow. PAST MEDICAL HISTORY: 1. CHF 2. Depression 3. COPD SOCIAL HISTORY: No alcohol, smoking or illicit drug use FAMILY HISTORY: Poor historian ALLERGIES: Please see below. REVIEW OF SYSTEMS: 10 point ROS was reviewed and notable pertinent positives are as mentioned in the HPI. All other elements were otherwise negative HOME MEDICATIONS: Please see below. PHYSICAL EXAMINATION: VITAL SIGNS: see below. BP 95/65, saturation 835 on room air GENERAL APPEARANCE: Elderly, obese, NAD HEENT: NCAT, in sunglasses, on taking them off, PERRLA, EOMI, MMM CARDIOVASCULAR: Tachycardic, regular rhythm, no murmurs, rubs or gallops auscultated LUNGS: Clear, moderate air movement, no manisha wheezing, no crackles ABDOMEN: Obese, normoactive sounds, NTND MUSCULOSKELETAL: moving all 4 extremities with full 5/5 strength EXTREMITIES: No significant LE edema, WWP NEUROLOGICAL: CN2-12, moving all extremities PSYCHIATRIC: AO x 3 LABORATORY DATA: See below. Reviewed above IMAGING: Reviewed above MICROBIOLOGY: Please see below. Assessment: 74 yo man with recently admitted for CHF during [facility]-downtime in 02/2020 and noted to have a small pericardial effusion at the time on CT chest, had some diuresis and discharged home with follow with Dr. Rogers who now returns to the ED reporting dyspnea on exertion and increasingly even at rest now and found to have a small pericardial effusion with a massive right ventricle and significant pulmonary hypertension with some volume overload. decompensated HFpEF: -hold off diuresis with soft to low BPs -supplements O2 -f/u stat TTE -consulted cardiology, Dr. Kebede will see him tomorrow -may continue metop 25 BID, with hold parameters -hold lasix -telemetry -no sodium diet COPD: -continue home advair -continue PRN benzonatate -continue home flonase pulmonary HTN: -f/u pending TTE read -appears to have poor follow up with providers, does not have a instructional support assistant and missed Dr. Rogers appointment DVT ppx: lovenox SQ Dispo: medsurg with tele Vital Signs Vital Signs Date Time Temp Pulse Resp B/P (MAP) Pulse Ox O2 Delivery O2 Flow Rate FiO2 03/20/20 15:50 97.7 87 20 95/65 (75) 96 Nasal Cannula 2.0 Laboratory Data Labs 24H Laboratory Tests 2 03/20/20 11:25: Immature Granulocyte % (Auto) 0.4, Neutrophils (%) (Auto) 73.9H, Lymphocytes (%) (Auto) 18.4L, Monocytes (%) (Auto) 6.2H, Eosinophils (%) (Auto) 0.8, Basophils (%) (Auto) 0.3, Neutrophils # (Auto) 5.5, Lymphocytes # (Auto) 1.4L, Monocytes # (Auto) 0.5, Eosinophils # (Auto) 0.1, Basophils # (Auto) 0.0, Nucleated Red Blood Cells % (auto) 0.0, Anion Gap 10, Glomerular Filtration Rate 58.5, Calcium Level 8.7L, Total Bilirubin 1.8H, Direct Bilirubin 0.4H, Aspartate Amino Transf (AST/SGOT) 225H, Alanine Aminotransferase (ALT/SGPT) 200H, Alkaline Phosphatase 247H, Total Creatine Kinase 72, Creatine Kinase MB 3.2, Creatine Kinase MB Relative Index 4.44H, Troponin I 0.10, YE-Awp-V-Type Natriuretic Peptide 43874P, Total Protein 6.5, Albumin 3.3, Albumin/Globulin Ratio 1.0, Thyroid Stimulating Hormone (TSH) 2.560, Thyroxine (T4) 10.8 03/20/20 13:06: Prothrombin Time 14.7H, Prothromb Time International Ratio 1.13, D-Dimer, Quantitative > 4001H, Lactic Acid Level 2.2*H CBC/BMP Laboratory Tests 03/20/20 11:25 Microbiology Microbiology 03/20/20 Blood Culture, Received Pending 03/20/20 Blood Culture, Received Pending Home Medications Scheduled Fluticasone Propionate (Flonase Allergy Relief) 50 Mcg/Act Spr, 2 SPRAYS NA QAM Furosemide (Furosemide) 40 Mg Tablet, 40 MG PO QAM Meloxicam (Meloxicam) 15 Mg Tablet, 15 MG PO QAM Metoprolol Tartrate (Metoprolol Tartrate) 25 Mg Tablet, 25 MG PO BID Salmeterol/Fluticasone (Advair 250-50 Diskus) 1 Each Blst.w.dev, 1 PUFF INH BID Scheduled PRN Benzonatate (Benzonatate) 100 Mg Capsule, 100 MG PO TID PRN for COUGH Allergies Coded Allergies: No Known Allergies (Unverified , 08/08/16) A-FIB/CHADSVASC A-FIB History Current/History of A-Fib/PAF?: No Current PO Anticoag Therapy: No Age/Risk Factor Scoring CHADSVASC: CHADSVASC Response (Comments) Value Age Risk Factor Age 65-74 years old 1 Gender Risk Factor Male 0 Hx of CHF Yes 1 Hx of HTN Yes 1 Hx of Stroke/TIA/or VTE No 0 Hx of Diabetes No 0 Hx of Vascular Disease No 0 Total 3 Treatment Treatment ordered: NONE Reason Anticoagulant not given: Not indicated/[id number] ALINE POWERS MD Mar 20, 2020 18:19
[2020-03-21 01:02] VITALS: BP 127/90
[2020-03-21 05:58] LABS: HEMATOCRIT 54.1 % (42.0-52.0); HEMOGLOBIN 17.4 g/dl (13.5-17.5); MEAN CORPUSCULAR HEMOGLOBIN 29.8 pg (27.0-33.0); MEAN CORPUSCULAR HGB CONC 32.2 g/dl (32.0-36.5); MEAN CORPUSCULAR VOLUME 92.6 fl (80.0-96.0); PLATELET COUNT, AUTOMATED 125 10^3/uL (150-450); RED BLOOD COUNT 5.84 10^6/uL (4.30-6.10); WHITE BLOOD COUNT 6.4 10^3/uL (4.0-10.0)
[2020-03-21 06:00] VITALS: BP 124/88
[2020-03-21 06:31] LABS: CALCIUM LEVEL 8.9 MG/DL (8.8-10.2); CREATININE FOR GFR 1.65 MG/DL (0.70-1.30); GLOMERULAR FILTRATION RATE 43.6 (>42); MAGNESIUM LEVEL 2.3 MG/DL (1.8-2.4)
[2020-03-21] MEDS ORDERED: FUROSEMIDE 40MG/4ML VIAL (J1940) IV ONE (09:00)
[2020-03-21] MEDS: ENOXAPARIN 40MG/0.4ML SYRINGE (J1650 PER 10MG) SC SCH (09:56)
--- NOTE | 2020-03-21 12:15 | IPNPDOC ---
Text Note Date of Service The patient was seen on 03/21/20. NOTE SUBJECTIVE: -No acute issues overnight -Remains hypoxemic, on 3L NC this morning PHYSICAL EXAMINATION: VITAL SIGNS: see below. BP 95/65, saturation 835 on room air GENERAL APPEARANCE: Elderly, obese, NAD HEENT: NCAT, in sunglasses, on taking them off, PERRLA, EOMI, MMM CARDIOVASCULAR: Tachycardic, regular rhythm, no murmurs, rubs or gallops auscultated LUNGS: Clear, moderate air movement, no manisha wheezing MUSCULOSKELETAL: moving all 4 extremities with full 5/5 strength EXTREMITIES: No significant LE edema, WWP NEUROLOGICAL: CN2-12, moving all extremities PSYCHIATRIC: AO x 3 LABORATORY DATA: See below. Reviewed lactate of 3 Cr increased to 1.65 WBC 6.4 hgb 17.4 IMAGING: Reviewed above MICROBIOLOGY: Please see below. Assessment: 74 yo man with recently admitted for CHF during [facility]-downtime in 02/2020 and noted to have a small pericardial effusion at the time on CT chest, had some diuresis and discharged home with follow with Dr. Rogers who now returns to the ED reporting dyspnea on exertion and increasingly even at rest now and found to have a small pericardial effusion with a massive right ventricle and significant pulmonary hypertension with volume overload. decompensated HFpEF: -lasix 40 IV once -supplements O2 -f/u stat TTE -consulted cardiology, Dr. Kebede will see him today -may continue metop 25 BID, with hold parameters -telemetry -no sodium diet COPD: -continue home advair -continue PRN benzonatate -continue home flonase pulmonary HTN: -f/u pending TTE read -appears to have poor follow up with providers, does not have a proof technician helper and missed Dr. Rogers appointment DVT ppx: lovenox SQ Dispo: medsurg with tele VS,Fishbone, I+O VS, Fishbone, I+O Laboratory Tests 03/20/20 11:25 03/21/20 05:20 Vital Signs Date Time Temp Pulse Resp B/P (MAP) Pulse Ox O2 Delivery O2 Flow Rate FiO2 03/21/20 06:00 97.9 95 16 124/88 (100) 95 Nasal Cannula 3.0 I&O- Last 24 Hours up to 6 AM 03/21/20 05:59 Intake Total 700 ml Output Total 0 ml Balance 700 ml ALINE POWERS MD Mar 21, 2020 08:59
[2020-03-21 14:00] VITALS: BP 123/62
[2020-03-21] MEDS: ACETAMINOPHEN TAB 650MG DOSE (2X325MG) PO PRN (15:44)
[2020-03-21 22:00] VITALS: BP 109/75
[2020-03-22 06:00] VITALS: BP 108/74
[2020-03-22 06:06] LABS: HEMATOCRIT 46.3 % (42.0-52.0); MEAN CORPUSCULAR HEMOGLOBIN 30.1 pg (27.0-33.0); MEAN CORPUSCULAR HGB CONC 32.6 g/dl (32.0-36.5); MEAN CORPUSCULAR VOLUME 92.2 fl (80.0-96.0); PLATELET COUNT, AUTOMATED 103 10^3/uL (150-450); RED BLOOD COUNT 5.02 10^6/uL (4.30-6.10); WHITE BLOOD COUNT 7.4 10^3/uL (4.0-10.0)
[2020-03-22 06:14] LABS: HEMOGLOBIN 15.1 g/dl (13.5-17.5)
[2020-03-22 06:32] LABS: BLOOD UREA NITROGEN 26 MG/DL (7-18); CALCIUM LEVEL 8.6 MG/DL (8.8-10.2); CARBON DIOXIDE LEVEL 29 MEQ/L (21-32); CHLORIDE LEVEL 102 MEQ/L (98-107); CREATININE FOR GFR 1.05 MG/DL (0.70-1.30); GLOMERULAR FILTRATION RATE > 60.0 (>42); GLUCOSE, FASTING 106 MG/DL (70-100); POTASSIUM SERUM 3.5 MEQ/L (3.5-5.1); SODIUM LEVEL 138 MEQ/L (136-145)
[2020-03-22] MEDS ORDERED: PREVNAR 13 VACCINE SYRINGE IM ONE (09:00)
[2020-03-22] MEDS ORDERED: FLUBLOK(EGG FREE)(QUAD)INFLUENZA VACC 0.5ML SYRINGE 18YRS & OLDER IM ONE (09:00)
[2020-03-22] MEDS: ENOXAPARIN 40MG/0.4ML SYRINGE (J1650 PER 10MG) SC SCH (09:41)
[2020-03-22] MEDS ORDERED: FUROSEMIDE 40MG/4ML VIAL (J1940) IV ONE (10:00)
--- NOTE | 2020-03-22 13:19 | IPNPDOC ---
Text Note Date of Service The patient was seen on 03/22/20. NOTE SUBJECTIVE: -No acute issues overnight -severe HERNANDEZ -had transient chest discomfort yesterday with stable EKG with sinus tach and baseline RBBB that had resolved by the time I re-evaluated him PHYSICAL EXAMINATION: VITAL SIGNS: see below. GENERAL APPEARANCE: Elderly, obese, NAD HEENT: NCAT, PERRLA, EOMI, MMM CARDIOVASCULAR: Tachycardic, regular rhythm, no murmurs, rubs or gallops LUNGS:CTAB, trace bibasilar crackles, no manisha wheezing MUSCULOSKELETAL: moving all 4 extremities with full 5/5 strength EXTREMITIES: No significant LE edema, WWP NEUROLOGICAL: CN2-12, moving all extremities PSYCHIATRIC: AO x 3 LABORATORY DATA: See below. Reviewed Cr now downtrended to 1.05 WBC 7.4 hgb 15.1 platelets 103 na 138 K 3.5 IMAGING: Reviewed above MICROBIOLOGY: Please see below. Assessment: 74 yo man with recently admitted for CHF during [facility]-downtime in 02/2020 and noted to have a small pericardial effusion at the time on CT chest, had some diuresis and discharged home with follow with Dr. Rogers who now returns to the ED reporting dyspnea on exertion and increasingly even at rest now and found to have a small pericardial effusion with a massive right ventricle and significant pulmonary hypertension with volume overload. decompensated HFpEF: -lasix 40 IV once today when BP appropriate today -supplements O2 -f/u stat TTE official results -consulted cardiology, Dr. Kebede will see him today -telemetry -no sodium diet COPD: -continue home advair -continue PRN benzonatate -continue home flonase -supplemental O2 -ambulatory saturation pulmonary HTN: -f/u pending TTE read -appears to have poor follow up with providers, does not have a strategic sourcing manager and missed Dr. Rogers appointment -Discussed his CT with Dr. Godoy who acknowledged the large RV and some plump pulm arteries but unlikely to explain the degree of RV failure, he thinks it may be primary cardiac, should follow up pfficial TTE read and outpatient with pulmonology DVT ppx: lovenox SQ Dispo: medsurg with tele. PT/OT VS,Fishbone, I+O VS, Fishbone, I+O Laboratory Tests 03/22/20 05:40 Vital Signs Date Time Temp Pulse Resp B/P (MAP) Pulse Ox O2 Delivery O2 Flow Rate FiO2 03/22/20 06:00 98.6 98 18 108/74 (85) 99 Nasal Cannula 1.0 I&O- Last 24 Hours up to 6 AM 03/22/20 05:59 Intake Total 1495 ml Output Total 950 ml Balance 545 ml ALINE POWERS MD Mar 22, 2020 09:02
[2020-03-22 14:00] VITALS: BP 107/74
[2020-03-22 16:19] VITALS: BP 130/86
[2020-03-22 17:42] LABS: CK-MB VALUE MASS 4.5 NG/ML (<3.6); MB/CK RELATIVE INDEX 3.81 (< OR =4); TROPONIN I 0.2 NG/ML (< 0.10)
[2020-03-22] MEDS: ACETAMINOPHEN TAB 650MG DOSE (2X325MG) PO PRN (21:30)
[2020-03-22 22:00] VITALS: BP 120/81
[2020-03-22 23:39] LABS: CK-MB VALUE MASS 3.9 NG/ML (<3.6); MB/CK RELATIVE INDEX 4.64 (< OR =4); TROPONIN I 0.31 NG/ML (< 0.10)
[2020-03-23] VITALS (8 sets, daily range): BP systolic 100–117; BP diastolic 67–76
[2020-03-23] MEDS: METOPROLOL TART 12.5 MG PER 1/2 TAB PO SCH ×3 (00:41→16:42)
[2020-03-23] MEDS ORDERED: NITROGLYCERIN 0.3 MG SUBL TAB SL STA (04:21)
[2020-03-23] MEDS ORDERED: NITROGLYCERIN 0.4 MG SUBL TABLET SL STA ×2 (04:29→12:15)
[2020-03-23] MEDS ORDERED: ASPIRIN 81 MG ENTERIC TAB As Ordered ONE (05:05)
[2020-03-23] MEDS: ASPIRIN 81 MG ENTERIC TAB PO SCH (05:09)
[2020-03-23 06:20] LABS: HEMATOCRIT 49.7 % (42.0-52.0); HEMOGLOBIN 16.1 g/dl (13.5-17.5); MEAN CORPUSCULAR HEMOGLOBIN 29.5 pg (27.0-33.0); MEAN CORPUSCULAR HGB CONC 32.4 g/dl (32.0-36.5); MEAN CORPUSCULAR VOLUME 91.2 fl (80.0-96.0); PLATELET COUNT, AUTOMATED 114 10^3/uL (150-450); RED BLOOD COUNT 5.45 10^6/uL (4.30-6.10); WHITE BLOOD COUNT 6.4 10^3/uL (4.0-10.0)
[2020-03-23 06:43] LABS: BLOOD UREA NITROGEN 28 MG/DL (7-18); CARBON DIOXIDE LEVEL 28 MEQ/L (21-32); CHLORIDE LEVEL 100 MEQ/L (98-107); CREATININE FOR GFR 1.05 MG/DL (0.70-1.30); GLOMERULAR FILTRATION RATE > 60.0 (>42); GLUCOSE, FASTING 120 MG/DL (70-100); POTASSIUM SERUM 3.7 MEQ/L (3.5-5.1); SODIUM LEVEL 136 MEQ/L (136-145)
[2020-03-23] MEDS: ENOXAPARIN 40MG/0.4ML SYRINGE (J1650 PER 10MG) SC SCH (08:51)
--- NOTE | 2020-03-23 11:35 | DS.PDOC ---
Discharge Summary General Date of Admission Mar 20, 2020 at 17:36 Date of Discharge 03/23/2020 Attending Physician: ALINE POWERS MD Specialist/Consultants Involve: PAT KERN MD Discharge Summary PROCEDURES PERFORMED DURING STAY: None ADMITTING DIAGNOSES: 1. CHF exacerbation 2. pericardial effusion DISCHARGE DIAGNOSES: 1. HFpEF exacerbation 2. Hypoxemic respiratory failure 3. COPD 4. Depression COMPLICATIONS/CHIEF COMPLAINT: Chf Pericardial Effusion. HISTORY OF PRESENT ILLNESS: 74 yo man with recently admitted for CHF during [facility]-downtime in 02/2020 and noted to have a small pericardial effusion at the time on CT chest, had some diuresis and discharged home to follow with Dr. Rogers who now returned to the ED reporting dyspnea on exertion and increasingly even at rest now. HOSPITAL COURSE: In the ED, he has soft BPs to 95/65, saturating low 80s on room air and was placed on oxygen, given combivent and dexamethasone 10 IV once with some mild improvement. Workup revealed a non ischemic EKG, troponin of 0.1, D-dimer >4000, CTA chest without a PE but moderate cardiomegaly with large RV and evidence of pulmonary hypertension and moderate pericardial effusion, while CT A/P showed some hepatic congestion, mild diverticulosis and some RP adenopathy. [place]BNP [place] [id number], TSH and free T4 were wnl, AST 225, ALT 200, alk phos 247, WBC 7.4, hgb 17, hct 52.[address] Anderson consulted Dr. Monge for the pericardial effusion that appeared to have increased in size since his last CT and he had a STAT TTE that on review with Dr. Monge was actually quite small and unlikely to be the cause of his symptoms. Dr. Anderson wanted to give him some lasix but given his soft to low BPs, held off and Dr. Monge recommended 500cc bolus which he tolerated well. He was subsequently admitted to medicine for HFpEF exacerbation and Dr. Kern (cardiology) was consulted. During his course, he underwent gentle diuresis with good effect until he was on room airb but was noted to become hypoxemic to 84% on ambulation with tachypneic and work of breathing. He quickly recovered on 1-2L NC. His course was c/b a brief transient episode of Afib w/ RVR with symptomatic chest heaviness that resolved by the time I went to bedside for evaluation. Dr. kern started him on low dose metoprol and we ultimately decided against full dose anticoagulation for transient Afib that resolved within a few minutes. He is now being discharged on new home supplemental oxygen to use 1-2L especially with ambulation for the foreseeable future, with maintenance lasix and cardiology follow up and pulmonology referral. DISCHARGE MEDICATIONS: Please see below. ALLERGIES: Please see below. PHYSICAL EXAMINATION ON DISCHARGE: VITAL SIGNS: Please see below. GENERAL APPEARANCE: Elderly, obese, NAD HEENT: NCAT, PERRLA, EOMI, MMM CARDIOVASCULAR: Tachycardic, regular rhythm, no murmurs, rubs or gallops LUNGS:CTAB, trace bibasilar crackles, no manisha wheezing MUSCULOSKELETAL: moving all 4 extremities with full 5/5 strength EXTREMITIES: No significant LE edema, WWP NEUROLOGICAL: CN2-12, moving all extremities PSYCHIATRIC: AO x 3 LABORATORY DATA: Please see below. IMAGING: CXR: 1. No acute thoracic abnormality. 2. No interval change when compared to most recent x-ray. CTA chest: 1. No pulmonary embolus. 2. Mild cardiomegaly. Marked dilatation of the right ventricle and central pulmonary arteries is consistent with pulmonary arterial hypertension. Confirmation with echocardiography is recommended. 3. Mild/moderate pericardial effusion. Most of the effusion is posterior, where it measures up to 15 mm. 4. Heterogeneous ground-glass mosaic attenuation of the pulmonary parenchyma, which is consistent with either air trapping from underlying small airways disease or chronic pulmonary vascular disease. No pulmonary consolidation. CT A/P with contrast: 1. Heterogeneous enhancement of the liver parenchyma without discrete mass. It is nonspecific. In this clinical setting, it is most likely due to passive hepatic congestion. Diffuse hepatic parenchymal disease may cause a similar appearance. 2. Mild colonic diverticulosis without evidence of diverticulitis. 3. Upper abdominal and retroperitoneal lymphadenopathy. 4. Moderate multifactorial spinal stenosis at L3-L4 and L4-L5. Severe disc narrowing and degeneration from L1-L5. TTE read pending. My wet read with normal EF, mild LVH, large RV PROGNOSIS: Fair, high risk for readmission with poor adherence and severe R heart failure ACTIVITY: As tolerated DIET: 2g sodium diet DISCHARGE PLAN: Home with supplemental O2, cardiology follow up and pulm referral DISPOSITION: Home DISCHARGE INSTRUCTIONS: 1. Home with supplemental O2, cardiology follow up and pulm referral ITEMS TO FOLLOWUP ON ON OUTPATIENT: 1. HFpEF 2. COPD 3. Depression 4. pulmonary hypertension DISCHARGE CONDITION: Stable TIME SPENT ON DISCHARGE: 54 minutes. Vital Signs/I&Os Vital Signs Date Time Temp Pulse Resp B/P (MAP) Pulse Ox O2 Delivery O2 Flow Rate FiO2 03/23/20 08:51 99 114/77 03/23/20 06:00 96.8 20 94 Nasal Cannula 1.0 I&O- Last 24 Hours up to 6 AM 03/23/20 06:00 Intake Total 970 ml Output Total 490 ml Balance 480 ml Laboratory Data Labs 24H Laboratory Tests 2 03/22/20 16:36: Total Creatine Kinase 118, Creatine Kinase MB 4.5H, Creatine Kinase MB Relative Index 3.81, Troponin I 0.20H 03/22/20 22:55: Total Creatine Kinase 84, Creatine Kinase MB 3.9H, Creatine Kinase MB Relative Index 4.64H, Troponin I 0.31#H 03/23/20 06:05: Troponin I 0.24#H, Nucleated Red Blood Cells % (auto) 0.0, Anion Gap 8, Glomerular Filtration Rate > 60.0, Calcium Level 9.0 CBC/BMP Laboratory Tests 03/23/20 06:05 Microbiology Microbiology 03/20/20 Blood Culture - Preliminary, Resulted No Growth after 48 hours. All Specime... 03/20/20 Blood Culture - Preliminary, Resulted No Growth after 48 hours. All Specime... Discharge Medications Scheduled Fluticasone Propionate (Flonase Allergy Relief) 50 Mcg/Act Spr, 2 SPRAYS NA QAM, (Reported) Furosemide (Furosemide) 40 Mg Tablet, 40 MG PO QAM, (Reported) Meloxicam (Meloxicam) 15 Mg Tablet, 15 MG PO QAM, (Reported) Metoprolol Tartrate (Metoprolol Tartrate) 25 Mg Tablet, 25 MG PO BID, (Reported) Salmeterol/Fluticasone (Advair 250-50 Diskus) 1 Each Blst.w.dev, 1 PUFF INH BID, (Reported) Scheduled PRN Benzonatate (Benzonatate) 100 Mg Capsule, 100 MG PO TID PRN for COUGH, (Reported) Allergies Coded Allergies: No Known Allergies (Unverified , 08/08/16) ALINE POWERS MD Mar 23, 2020 11:34
[2020-03-23] MEDS ORDERED: ASPI81TAEC PO (11:36)
[2020-03-23] MEDS: ACETAMINOPHEN TAB 650MG DOSE (2X325MG) PO PRN (11:58)
[2020-03-23] MEDS: ATORVASTATIN 20 MG TAB PO SCH (12:57)
[2020-03-23] MEDS: NITROGLYCERIN 0.4 MG SUBL TABLET SL PRN ×2 (13:00→13:05)
--- NOTE | 2020-03-23 14:30 | IPNPDOC ---
Text Note Date of Service The patient was seen on 03/23/20. NOTE SUBJECTIVE: -No acute issues overnight -Had been feeling great this morning when I rounded and plan had been to discharge him home with home O2 with plan for cardiology f/u and pulm referral, than at noon he developed acute severe chest pain on ambulating to the bathroom and Dr. Kebede came in to see him at this time and ordered him for SLN. Will therefore not discharge today, Dr. Kebede thought this was likely angina. PHYSICAL EXAMINATION: VITAL SIGNS: see below. GENERAL APPEARANCE: Elderly, obese, NAD HEENT: NCAT, PERRLA, EOMI, MMM CARDIOVASCULAR: Tachycardic, regular rhythm, no murmurs, rubs or gallops LUNGS:CTAB, trace bibasilar crackles, no manisha wheezing MUSCULOSKELETAL: moving all 4 extremities with full 5/5 strength EXTREMITIES: No LE edema, WWP NEUROLOGICAL: CN2-12, moving all extremities PSYCHIATRIC: AO x 3 LABORATORY DATA: See below. Reviewed IMAGING: Reviewed above MICROBIOLOGY: Please see below. Assessment: 74 yo man with recently admitted for CHF during [facility] in 02/2020 and noted to have a small pericardial effusion at the time on CT chest, had some diuresis and discharged home with follow with Dr. Rogers who now returns to the ED reporting dyspnea on exertion and increasingly even at rest now and found to have a small pericardial effusion with a massive right ventricle and significant pulmonary hypertension with volume overload, now with course c/b exertional chest pain c/w angina. decompensated HFpEF: -supplemental O2 -f/u stat TTE official results -consulted cardiology, Dr. 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 Rogers appointment -Discussed his CT with Dr. Godoy who acknowledged the large RV and some plump pulm arteries but unlikely to explain the degree of RV failure, he thinks it may be primary cardiac, should follow up official TTE read and outpatient with pulmonology DVT ppx: lovenox SQ Dispo: medsurg with tele. PT/OT. Will discuss plan with Dr. Kebede for his ongoing episodic pain that is c/w angina VS,Fishbone, I+O VS, Fishbone, I+O Laboratory Tests 03/23/20 06:05 Vital Signs Date Time Temp Pulse Resp B/P (MAP) Pulse Ox O2 Delivery O2 Flow Rate FiO2 03/23/20 11:59 84 18 107/73 (84) 94 Nasal Cannula 1.0 03/23/20 06:00 96.8 I&O- Last 24 Hours up to 6 AM 03/23/20 06:00 Intake Total 970 ml Output Total 490 ml Balance 480 ml ALINE POWERS MD Mar 23, 2020 12:38
[2020-03-23] MEDS ORDERED: ONDANSETRON 4MG/2ML VIAL IV ONE (20:00)
[2020-03-24] VITALS (8 sets, daily range): BP systolic 84–119; BP diastolic 56–88
[2020-03-24 06:48] LABS: HEMATOCRIT 51.1 % (42.0-52.0); HEMOGLOBIN 16.5 g/dl (13.5-17.5); MEAN CORPUSCULAR HEMOGLOBIN 29.7 pg (27.0-33.0); MEAN CORPUSCULAR HGB CONC 32.3 g/dl (32.0-36.5); MEAN CORPUSCULAR VOLUME 92.1 fl (80.0-96.0); PLATELET COUNT, AUTOMATED 114 10^3/uL (150-450); RED BLOOD COUNT 5.55 10^6/uL (4.30-6.10); WHITE BLOOD COUNT 6.6 10^3/uL (4.0-10.0)
[2020-03-24 07:09] LABS: CALCIUM LEVEL 9.1 MG/DL (8.8-10.2); CREATININE FOR GFR 1.79 MG/DL (0.70-1.30); GLOMERULAR FILTRATION RATE 39.7 (>42)
[2020-03-24] MEDS: METOPROLOL TART 12.5 MG PER 1/2 TAB PO SCH ×2 (08:00)
[2020-03-24] MEDS: NITROGLYCERIN 0.4 MG SUBL TABLET SL PRN (10:09)
[2020-03-24] MEDS: ENOXAPARIN 40MG/0.4ML SYRINGE (J1650 PER 10MG) SC SCH (10:09)
[2020-03-24] MEDS: ASPIRIN 81 MG ENTERIC TAB PO SCH (10:10)
[2020-03-24] MEDS: ATORVASTATIN 20 MG TAB PO SCH (10:10)
[2020-03-24] MEDS: ACETAMINOPHEN TAB 650MG DOSE (2X325MG) PO PRN (10:10)
[2020-03-24] MEDS ORDERED: NS 500 ML IV ONE (11:15)
[2020-03-24 11:31] LABS: CK-MB VALUE MASS 3.3 NG/ML (<3.6); MB/CK RELATIVE INDEX 2.43 (< OR =4); TROPONIN I 0.53 NG/ML (< 0.10)
[2020-03-24] MEDS ORDERED: NITR4TASL SL (11:32)
[2020-03-24] MEDS ORDERED: ATOR1TAB21 PO (11:32)
--- NOTE | 2020-03-24 11:46 | IPNPDOC ---
Text Note Date of Service The patient was seen on 03/24/20. NOTE SUBJECTIVE: -Has episodic chest pain especially with ambulation -yesterday was started on SLN, and had stable tele and a mild trop leak PHYSICAL EXAMINATION: VITAL SIGNS: see below. GENERAL APPEARANCE: Elderly, obese, NAD HEENT: NCAT, PERRLA, EOMI, MMM CARDIOVASCULAR: Tachycardic, regular rhythm, no murmurs, rubs or gallops LUNGS:CTAB, trace bibasilar crackles, no manisha wheezing MUSCULOSKELETAL: moving all 4 extremities with full 5/5 strength EXTREMITIES: No LE edema, WWP NEUROLOGICAL: CN2-12, moving all extremities PSYCHIATRIC: AO x 3 LABORATORY DATA: See below. Reviewed. Cr bumped to 1.79 IMAGING: Reviewed above MICROBIOLOGY: Please see below. Assessment: 74 yo man with recently admitted for CHF during [facility]-downtime in 02/2020 and noted to have a small pericardial effusion at the time on CT chest, had some diuresis and discharged home with follow with Dr. Rogers who now returns to the ED reporting dyspnea on exertion and increasingly even at rest now and found to have a small pericardial effusion with a massive right ventricle and significant pulmonary hypertension with volume overload, now with course c/b exertional chest pain c/w angina. decompensated HFpEF: -supplemental O2 -f/u stat TTE official results -consulted cardiology, Dr. Kebede, have been giving lasix as BP allows and when we don't Cr worsens -telemetry -no sodium diet exertional chest pain c/w angina: -ASA 81 -PRN SLN -f/u TTE results -telemetry -lipitor 40mg -Spoke with Dr. 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 Rogers appointment -Discussed his CT with Dr. Godoy who acknowledged the large RV and some plump pulm arteries but unlikely to explain the degree of RV failure, he thinks it may be primary cardiac, should follow up official TTE read and outpatient with pulmonology DVT ppx: lovenox SQ Dispo: Transfer to [place] VS,Manuel, I+O VS, Manuel, I+O Laboratory Tests 03/24/20 06:17 Vital Signs Date Time Temp Pulse Resp B/P (MAP) Pulse Ox O2 Delivery O2 Flow Rate FiO2 03/24/20 08:02 95 21 92/62 (72) 92 Nasal Cannula 2.0 03/24/20 06:00 98.4 I&O- Last 24 Hours up to 6 AM 03/24/20 06:00 Intake Total 990 ml Output Total 300 ml Balance 690 ml ALINE POWERS MD Mar 24, 2020 09:27
--- NOTE | 2020-03-25 12:20 | ECHO ---
DATE OF PROCEDURE: 03/20/2020 Age: 74 REFERRING PHYSICIAN: Trevor Anderson MD PATIENT LOCATION: ED, Room 3. REASON FOR STUDY: Pericardial effusion. 2D MEASUREMENTS: IVS 1.4 cm LV 2.8 cm LVPW 1.4 cm LA 2.4 cm Aorta 3.8 cm IVC 1.7 cm DOPPLER MEASUREMENT Peak velocity across the aortic valve 0.75 mm/s Mitral E 1.0 Mitral A 0.3 with a ratio of 2.6 Maximal tricuspid valve velocity 3.6 mm/s 2D COMMENTS: 1. Mildly increased left ventricular wall thickness with normal left ventricle size and a low normal global left ventricular systolic function. Estimated left ventricular systolic ejection fraction 55% to 60%. 2. Normal left atrium. The right atrium and the right ventricle appear to be enlarged. The right ventricular free wall is hypokinetic consistent with right ventricular systolic dysfunction. There was a flat ventricular septum during the cardiac cycles. 3. The atrial septum did not reveal any evidence of shunt or defect. 4. Mildly dilated aortic root at 3.8 cm. 5. [id number] pericardial effusion noted. No evidence of cardiac tamponade. Small pericardial effusion was noted posteriorly. 6. Mildly calcified aortic valve with normal leaflet excursion. Mildly calcified mitral annulus with normal anterior mitral valve leaflet motion. Normal tricuspid valve and pulmonic valve. The proximal pulmonary artery branches appear to be normal. 7. The inferior vena cava interestingly appears to be normal in size. Central venous pressure appeared normal. DOPPLER: It detects mild aortic regurgitation, mild mitral regurgitation, [id number] tricuspid regurgitation. The calculated pulmonary artery systolic pressure varies between 50 to 60 mmHg. Assessment of the left ventricular diastolic function appears to be normal. IMPRESSION: 1. Low normal global left ventricular systolic function with mild concentric left ventricular hypertrophy. Assessment of the left ventricular diastolic function appears to be normal. 2. Aortic valve sclerosis with mild aortic regurgitation, but no aortic stenosis. 3. Mitral annulus calcification with mild mitral regurgitation. 4. Moderately severe tricuspid regurgitation with moderate pulmonary hypertension and dilated right heart chambers. Those are findings consistent with right ventricular systolic dysfunction. 5. Eqcxw-[id number] pericardial effusion noted. No evidence of cardiac tamponade and small pericardial effusion was noted posteriorly. MTDD
--- NOTE | 2020-03-26 07:43 | CR ---
DATE OF CONSULTATION: REFERRING PHYSICIAN: REASON FOR CONSULTATION: Shortness of breath. HISTORY OF PRESENT ILLNESS: 74-year-old male came to the hospital upon the recommendation of his family member because of shortness of breath, pedal edema. He had a chest CT in the hospital that revealed pericardial effusion. This was followed by an echocardiogram that revealed small to moderate pericardial effusion and in addition markedly dilated right heart chambers. Left ventricular ejection fraction (LVEF) was normal. Cardiology consult was called. When I saw Mr. Ramirez on the floor in his room, he was sitting in the chair and having dinner. He complains of shortness of breath with minimal activities at home, even at with rest. He said that yesterday he was having some chest discomfort on and off according to his nurse and his hospitalist. On one occasion, he was given one nitroglycerin sublingual and the chest pain disappeared quickly within 5 to 10 minutes. He also was having episode of burst of narrow complex tachycardia, that seems to be supraventricular tachycardia (SVT) and there is a concern about atrial flutter/atrial fibrillation. When I saw him, he was not having any chest pain. At home, he has shortness of breath with minimal activities and occasional chest discomfort, even with rest. He thinks he feels better with the oxygen and he is about to be more activity. He does any palpitations. He does have some mild bipedal edema. He has no focal manifestation. He denies any bleeding. PAST MEDICAL HISTORY POSTIVE FOR: Congestive heart failure due to left ventricular diastolic dysfunction, chronic obstructive pulmonary disease (COPD), anxiety/depression. MEDICATIONS: Lovenox 40 mg subcutaneous daily, Tylenol 650 mg q 4 hours as needed, atorvastatin 40 mg p.o. daily. FAMILY HISTORY: Noncontributory. SOCIAL HISTORY: The patient lives with some family members, a nephew. He denies any history of coronary artery disease, myocardial infarction, atrial fibrillation/flutter, cardiomyopathy, transient ischemic attack (TIA)/ cerebrovascular accident (CVA), sudden cardiac , diabetes mellitus, kidney disease. ALLERGIES: No known drug allergies. ADVANCED DIRECTIVES: The patient is a full code. PHYSICAL EXAMINATION: The patient is alert and oriented, in no acute distress at rest with a blood pressure when I saw him of 130/86, pulse of 102, respirations 18, maximum temperature was 97.5 degrees Fahrenheit, oxygen saturation of 94% on 1 liter nasal canula. Examination of the head: Atraumatic. Neck is supple without extended jugular. No carotid bruits. Did not reveal any wheezing or crackles. The heart examination revealed a regular heart sound with S4 gallops. The PMI is slightly displaced inferiorly. There is no rub. Abdomen is soft and nontender. Bowel sounds active. Extremities reveal 2+ bilateral lower leg edema. Neurological examination is negative for focal deficit. LABORATORY DATA: Basic metabolic panel (BMP) on 03/22/2020 revealed a sodium of 138, potassium 3.5, chloride 102, carbon dioxide 29, BUN 26, creatinine 1.05, glomerular filtration rate (GFR) more than 60, fasting glucose 106 and calcium 8.6. Troponin was 0.20. PT on admission was 14.7 with an INR of 1.1. D-dimer was more than 4,000. Complete blood count (CBC) on 03/22/2020 revealed WBC of 0.7.4, hemoglobin 15.1, hematocrit 46.3 and platelets 103,000. IMAGING DATA: Chest x-ray on admission revealed no acute disease process. It was reported there was no cardiomegaly. CT angiogram of the chest revealed mild cardiomegaly, no pulmonary embolism. There was marked dilation of the right ventricle and central pulmonary arteries consistent with pulmonary artery hypertension. Mild to moderate pericardial effusion and mostly noted posteriorly. There is a ground glass mosaic attenuation of the pulmonary parenchyma consistent with air trapping from small airway disease or pulmonary vascular disease. No pulmonary consolidation. IMPRESSION: 74-year-old male has been having shortness of breath for a few days with multiple visits to the emergency room and this time he had echocardiogram that revealed normal left ventricular systolic function with small to moderate pericardial effusion, but a dilated right ventricle and atrium with some probably severe pulmonary hypertension and right systolic function. He has minimal pulmonary edema. His hemoglobin and hematocrit were reported on admission to be 17.0 and 52.2. The etiology of his shortness of breath is not quite clear and may be multifactorial. Case was discussed with his hospitalist and oxygen supplement was recommended. There is a concern that his right-sided failure may be related to left-sided failure, but I doubt it, it is very unlikely because there is no significant mitral regurgitation and left ventricular ejection fraction (LVEF) is normal. His telemetry reveals sinus tachycardia at times with a burst of narrow complex supraventricular tachycardia. I have started him on a small dose of metoprolol tartrate at 12.5 mg q 8 hours and upon discharge we can change it to 25 mg p.o. b.i.d. I have added a baby aspirin daily. We shall discharge him when he is ready on oxygen supplement. He would benefit from further evaluation by pulmonary. In view of the dilated right heart chambers, I am concern about a carcinoid tumor and he should be evaluated for that even as an outpatient. I am also concerned about shortness of breath and chest discomfort; and as an outpatient, we can do a stress test for further evaluation. It was a pleasure to participate in the care of Mr. Ramirez for his underlying cardiac condition. I will continue to monitor him along with you while in the hospital. At this present time, he appears to be stable. CHARLENE
--- NOTE | 2020-03-26 14:00 | IPN ---
DATE: 03/24/2020 CHIEF COMPLAINT: SUBJECTIVE: Mr. Link Ramirez was essentially admitted on 03/20/2020 with shortness of breath with activities. He initially had a chest CT done in the emergency room (ER) that was negative for pulmonary embolism, but with a small to moderate pericardial effusion. This was followed by an echocardiogram that revealed a normal global left ventricular systolic function with small to moderate pericardial effusion without evidence of cardiac tamponade. Dilated right heart chamber with right ventricular systolic dysfunction. His serum troponin initially was 0.10 with a serum proBNP of 17,914. I had seen him at the cardiology consult; and when I talked to him, he was complaining of shortness of breath with minimal activities at home associated with chest discomfort. Since in the hospital, the nurse have told me he has been chest discomfort at rest on and off and sometimes relieved with nitroglycerin sublingual. His serum troponin peaked up to 0.31. He was started on a statin, aspirin, as well as a beta cherie. He has been on subcutaneous Lovenox for deep venous thrombosis (DVT) prophylaxis. Yesterday, he had an episode of chest pain, related to but his EKG did not reveal any changes. This morning again I was called by the hospitalist while the patient was having chest pain and his blood pressure is low, but it was after nitroglycerin sublingual. When I saw him this morning at bedside, he was having minimal chest discomfort. He is concerned, but in no acute distress. He denied any dizziness, there is no focal manifestation. There is no report of bleeding. He denies any palpitations. There is no report of nausea, vomiting, diarrhea, melena or hematemesis. He has not been coughing. His chest pain radiates to the back, but not to the shoulders or the neck. It is retrosternal. PHYSICAL EXAMINATION: On physical examination, the patient is alert and oriented, in no acute distress at rest and his most recent blood pressure was 85/56 with a pulse of 84, respirations 17 and his maximum temperature was 97.4 degrees Fahrenheit with oxygen saturation of 91-94% on 3 liters nasal canula. Examination of the head: Atraumatic. Neck is supple with distended jugular. Did not detect any wheezing. The heart examination revealed irregular heart sounds without gallops. The PMI is slightly displaced inferiorly. There is no rub. However, the patient did have rales. Abdomen is soft and nontender. Extremities revealed trace ankle edema. Neurological examination is negative for focal deficit. LABORATORY: Complete blood count (CBC) done this morning revealed WBC of 6.6, hemoglobin 16.5, hematocrit 51 and platelets 114,000. Basic metabolic panel (BMP) revealed a sodium of 134, potassium 4.0, chloride 97, Co2 29, BUN 33, creatinine 1.79 and yesterday creatinine was 1.05. Fasting glucose 105. Calcium 9.1. Serum troponin was 0.10, 0.20, 0.31 and 0.24. Electrocardiogram (EKG) on 03/21/2020 revealed normal sinus rhythm. Mildly tachycardiac at 104 beats per minute. Right axis deviation, possible prior inferior wall infarct, possible prior anterior wall infarct with nonspecific ST-T abnormalities. ST-T abnormalities are noted in the inferior, as well as the . Electrocardiogram (EKG) done today reveals normal sinus rhythm at 85 beats per minute, otherwise no remarkable changes not mentioned above. There is also finding consistent with incomplete right bundle branch block. IMPRESSION: 74-year-old male with history of hyperlipidemia came to the hospital with chest pain and shortness of breath and was found to have an abnormal electrocardiogram (EKG), as well as minimally abnormal serum troponin. The patient continues to have chest pain in the hospital and the plan was to discharge him for follow up as outpatient and have a stress test in view of the recurrent chest pain. He will be transferred for a cardiac catheterization. This was discussed with him. He has agreed to proceed. The case was discussed with the hospitalist and discussed with Dr. Reyes from [facility] who kindly agreed to accept the patient. CHARLENE
--- NOTE | 2020-03-27 09:17 | ECGEPIP ---
[facility] - ED Test Date: 2020-03-20 Pat Name: STEFANI HERNANDEZ Department: Room: - Gender: Male Foxer: : 1945 Requested By: ABHI Hunt Order Number: [id number] Reading MD: Merly Mari Measurements Intervals [place] Rate: 80 P: 43 AR: 177 QRS: 144 QRSD: 98 T: -69 QT: 427 QTc: 493 Interpretive Statements SINUS RHYTHM WITH SINUS ARRHYTHMIA INDETERMINATE AXIS LOW QRS VOLTAGE IN PRECORDIAL LEADS INFERIOR MYOCARDIAL INFARCTION, OF INDETERMINATE AGE PROBABLE ANTEROLATERAL MYOCARDIAL INFARCTION, OF INDETERMINATE AGE SEE SCANNED DOWNTIME REPORT
--- NOTE | 2020-04-04 14:32 | ECGEPIP ---
[facility] Test Date: 2020-03-24 Pat Name: STEFANI HERNANDEZ Department: Room: [place] [address] Gender: Male Title Department Manager: RUPERT : 1945 Requested By: ALINE Magaña Order Number: [id number] Reading MD: Brayan Delio Measurements Intervals [place] Rate: 85 P: 46 ID: 174 QRS: 145 QRSD: 100 T: -51 QT: 408 QTc: 487 Interpretive Statements SINUS RHYTHM WITH NON SPECIFIC ST/T ABNORMALITY INCOMPLETE RIGHT BUNDLE BRANCH BLOCK POSSIBLE RIGHT VENTRICULAR HYPERTROPHY PROBABLE INFERIOR MYOCARDIAL INFARCTION, OF INDETERMINATE AGE PROBABLE ANTEROLATERAL MYOCARDIAL INFARCTION, OF INDETERMINATE AGE ABNORMAL EKG INTERPRETATION BASED ON A DEFAULT AGE OF 40 YEARS *HEARTRATE IS NOW SLOWER SEE SCANNED DOWNTIME REPORT
--- NOTE | 2020-04-09 20:17 | ECGEPIP ---
[facility] Test Date: 2020-03-21 Pat Name: STEFANI HERNANDEZ Department: Room: [place] [address] Gender: Male Grocery Caddy: RUPERT : 1945 Requested By: Freddy Arteaga Order Number: [id number] Reading MD: Chase Fernando Measurements Intervals [place] Rate: 104 P: 46 ND: 165 QRS: 140 QRSD: 93 T: -52 QT: 349 QTc: 461 Interpretive Statements Sinus tachycardia Frontal axis indeterminate Incomplete right bundle branch block Consider RVH IWMI of indeterminate age Nonspecific ST-T wave abnormalities No significant change when compared to prior tracing of 03/20/2020 Electronically Signed on 04-09-2020 20:17:22 EDT by Chase Fernando
--- NOTE | 2020-04-11 13:29 | ECGEPIP ---
[facility] Test Date: 2020-03-22 Pat Name: STEFANI HERNANDEZ Department: Room: [place] [address] Gender: Male Mailroom Courier: LY : 1945 Requested By: ALINE Magaña Order Number: [id number] Reading MD: Bernardo Ghosh Measurements Intervals [place] Rate: 95 P: 37 DC: 170 QRS: 143 QRSD: 99 T: -51 QT: 374 QTc: 470 Interpretive Statements NORMAL SINUS RHYTHM R AXIS INCOMPLETE RIGHT BUNDLE BRANCH BLOCK PRIOR R PROGRESSION INFERIOR Q WAVES - BODY HABITUS VS COPD R/O PRIOR ASMI/IWMI ST & T WAVE ABNORMALITIES NO CHANGE FROM SEE SCANNED DOWNTIME REPORT.
--- NOTE | 2020-04-16 10:12 | ECGEPIP ---
[facility] Test Date: 2020-03-23 Pat Name: STEFANI HERNANDEZ Department: Room: [place] [address] Gender: Male Dip Filler: STEPHANE : 1945 Requested By: ELIZABETH GARSIA Order Number: [id number] Reading MD: Bernardo Ghosh Measurements Intervals [place] Rate: 89 P: 42 NM: 177 QRS: 147 QRSD: 99 T: -60 QT: 391 QTc: 478 Interpretive Statements NSR R AXIS, IRBBB-BODY HABITUS VS COPD R/O PRIOR ASMI/IWMI NONSPECIFIC ST/T ABNORMALITIES NO CHANGE FROM 03/22/20 SEE SCANNED DOWNTIME REPORT
== END 2020-03-24 13:40 | disposition short-term general hospital (02) | DRG 291 ==
LOC: M ED 11:01 → EDBD 11:01 → M ED INP 17:36 → M MSPAV 03-21 01:02
PROVIDERS: ADMIT Internal Medicine; ATTEND Internal Medicine
DX: I50.33 Acute on chronic diastolic (congestive) heart failure (principal); J96.91 Respiratory failure, unspecified with hypoxia; I31.3 Pericardial effusion (noninflammatory); I47.1 Supraventricular tachycardia; J44.9 Chronic obstructive pulmonary disease, unspecified; I27.20 Pulmonary hypertension, unspecified; I48.91 Unspecified atrial fibrillation; F32.9 Major depressive disorder, single episode, unspecified; Z79.899 Other long term (current) drug therapy